=== PATIENT | female | born 2005 | race Caucasian/White ===

== ENCOUNTER 2023-06-21 11:28 | Outpatient (OUT) | payer MEDICAID, SELFPAY ==
[2023-06-21 12:05] LABS: Basophils Percent Auto 0.9 % (0.2-2.0); Eosinophils Absolute Auto 0.1 10^3/uL (0.0-0.7); Eosinophils Percent Auto 2.4 % (0.9-7.0); Hematocrit 41.2 % (36.0-48.0); Hemoglobin 13.6 g/dL (12.0-16.0); Lymphocytes Absolute Auto 1.3 10^3/uL (1.2-3.8); Lymphocytes Percent Auto 39.1 % (20.5-60.0); Mean Corpuscular Volume 90.7 fL (81.0-99.0); Mean Platelet Volume 9.9 fL (9.5-13.5); Monocytes Absolute Auto 0.4 10^3/uL (0.3-0.8); Monocytes Percent Auto 11.5 % (1.7-12.0); Neutrophils Absolute Auto 1.6 10^3/uL (1.4-6.5); Neutrophils Percent Auto 46.1 % (43.0-75.0); Platelet Count 191 10^3/uL (150-450); Red Blood Count 4.54 10^6/uL (4.20-5.40); Red Cell Distribution Width 12.5 % (11.0-15.0); White Blood Count 3.4 10^3/uL (4.0-11.0)
[2023-06-21 12:28] LABS: Alanine Aminotransferase 15 U/L (14-59); Aspartate Amino Transferase 13 U/L (15-37); Triglycerides 33 mg/dL (<=150)
== END 2023-06-21 11:29 | disposition home or self-care (01) ==
PROVIDERS: PCP Nurse Practitioner Family
DX: L70.0 Acne vulgaris (principal); Z79.899 Other long term (current) drug therapy
CPT/HCPCS: 36415; 84450; 84460; 84478; 85025

== ENCOUNTER 2023-07-17 12:01 | Emergency (ER) | payer MEDICAID, SELFPAY ==
[2023-07-17 12:10] VITALS: BP 116/88; PULSE 72; RESP 20; TEMP 36.5; O2SAT 100; BMI 26.6
[2023-07-17 12:57] LABS: Bilirubin Urine NEGATIVE (NEGATIVE); Blood Urine TRACE-I (NEGATIVE); Clarity Urine CLEAR (CLEAR); Color Urine LT. YELLOW (YELLOW); Glucose Urine UA NEGATIVE (NEGATIVE); HCG Qualitative Urine* NEGATIVE (NEGATIVE); Ketones Urine NEGATIVE (NEGATIVE); Leukocyte Esterase Urine TRACE (NEGATIVE); Nitrite Urine NEGATIVE (NEGATIVE); Protein Urine NEGATIVE (NEG/TRACE); Specific Gravity Urine 1.015 (1.005-1.025); Urobilinogen Urine 0.2 EU/dL (0.2-1.0)
[2023-07-17 12:58] LABS: Urine Microscopic Indicated YES
[2023-07-17 13:08] LABS: Bacteria Urine TRACE #/HPF (NONE SEEN); Cast Seen? NONE SEEN #/LPF (NONE SEEN); Crystals Seen? None Seen #/HPF (None Seen); Mucus Urine NONE SEEN (NONE SEEN); RBC Urine 0-2 #/HPF (0-2); Squamous Epithelial Cell Urine RARE #/LPF (NONE/RARE); Urine Culture Indicated NO; WBC Urine 0-2 #/HPF (NONE SEEN)
--- NOTE | 2023-07-17 13:29 | XR_ITS ---
[place] [id number] Patient Name: MARYCARMEN PATEL MRN: [id number] date: 2005 Sex: F Assigned Patient Location: ER Current Patient Location: ER Accession/Order Number: [id number] Exam Date: 07/17/2023 13:52 Report Date: 07/17/2023 14:11 At the request of: HUY ODEN Procedure: XR abdomen min 2V EXAMINATION: XR abdomen min 2V, [id number] HISTORY: Low abdominal pain, diarrhea COMPARISON: CT abdomen/pelvis 03/25/2021 FINDINGS: Nonobstructive bowel gas pattern. No pneumoperitoneum, pneumatosis, or portal venous gas demonstrated. No abnormal soft tissue calcifications. Stool burden is average. XR/XR abdomen min 2V IMPRESSION: No acute intra-abdominal abnormality demonstrated. Electronically authenticated by: ANGELICA YANCEY Date: 07/17/2023 14:11
--- NOTE | 2023-07-17 13:31 | ED_ITS ---
HPI - Abdominal Pain General Chief Complaint: Abdominal Pain Stated Complaint: ABDOMINAL PAIN Time Seen by Provider: 07/17/23 13:22 Source: patient Mode of arrival: walk-in Limitations: no limitations History of Present Illness HPI narrative: patient is a 18-year-old female presents to the emergency department for the evaluation of suprapubic pain for the last three days associated with occasional vomiting. She states she has also had diarrhea since the pain began. She has not had any fevers, chills, dysuria or hematuria. She states the pain feels like menstrual cramps. She has not had any abnormal vaginal bleeding. She has had some vaginal discharge that she states seems typical for her. She states her primary concern is that her significant other has been having intercourse with other partners that she is concern for STD exposure. she is not concerned for . she has no flank or back pain. No medications taken prior to arrival. Related Data Home Medications Medication Instructions Recorded Confirmed isotretinoin 40 mg capsule 40 mg PO DAILY 07/17/23 07/17/23 (Accutane) Previous Rx's Medication Instructions Recorded hyoscyamine sulfate 0.125 mg 0.125 mg PO Q6H PRN abdominal pain 07/17/23 tablet (Levsin) #12 tabs ketorolac 10 mg tablet 10 mg PO TID PRN pain #10 tabs 07/17/23 ondansetron 4 mg disintegrating 4 mg PO Q6H PRN nausea and 07/17/23 tablet vomiting #12 tabs Allergies Allergy/AdvReac Type Severity Reaction Status Date / Time No Known Drug Allergies Allergy Verified 07/17/23 12:09 Review of Systems ROS Constitutional Denies: fever or chills Ears, nose, mouth, and throat Denies: throat pain Cardiovascular Denies: chest pain Respiratory Denies: shortness of breath or cough Gastrointestinal Reports: abdominal pain, nausea, vomiting and diarrhea Genitourinary Denies: painful urination Musculoskeletal Denies: back pain Integumentary/Breast Denies: rash Neurological Denies: headache Psychiatric Denies: anxiety Endocrine Denies: excessive urination PFSH PFSH Social History Smoking status: Never smoker Exam Narrative Exam Narrative: Gen.: Awake, alert, in no distress Head: Normocephalic, atraumatic ENT: Moist mucous membranes Respiratory: No respiratory distress Gastrointestinal: Abdomen is soft, nondistended and mildly tender to palpation in the suprapubic abdomen with no guarding or rebound. No pain out of proportion on exam. No right lower quadrant or McBurney's point tenderness. No flank or CVA tenderness. Extremities: Moves extremities equally Psych: Normal mood and affect Neuro: No focal neuro deficit Skin: Warm, dry, intact Constitutional Vital Signs, click to edit/add: Last Vital Signs Temp 97.7 F 07/17/23 12:10 Pulse 72 07/17/23 12:10 Resp 20 07/17/23 12:10 BP 116/88 07/17/23 12:10 Pulse Ox 100 07/17/23 12:10 O2 Del Method Room Air 07/17/23 12:10 Course Vital Signs Vital signs: Vital Signs Temperature 97.7 F 07/17/23 12:10 Pulse Rate 72 07/17/23 12:10 Respiratory Rate 20 07/17/23 12:10 Blood Pressure 116/88 07/17/23 12:10 Pulse Oximetry 100 07/17/23 12:10 Oxygen Delivery Method Room Air 07/17/23 12:10 Temperature 97.7 F 07/17/23 12:10 Pulse Rate 72 07/17/23 12:10 Respiratory Rate 20 07/17/23 12:10 Blood Pressure 116/88 07/17/23 12:10 Pulse Oximetry 100 07/17/23 12:10 Oxygen Delivery Method Room Air 07/17/23 12:10 MDM - Abdominal Pain MDM Narrative Medical decision making narrative: pelvic exam was performed at bedside with Kenna Rendon RN at bedside throughout the duration of the exam. Patient has no external lesions or active drainage or bleeding. Speculum exam shows a mild amount of white discharge, no cervical motion tenderness. Pelvic swabs were obtained. These are pending, patient would like to be empirically treated with Rocephin, azithromycin and Flagyl. She was treated in the Emergency Room with Toradol and Zofran. Abdomen is soft and benign, lab studies and abdominal x-rays are also unremarkable. She has no pain out of proportion on exam or McBurney's point tenderness concerning for appendicitis. She will be treated with Toradol, Levsin, Zofran for home. Follow- up with adult basic education instructor and return to the Emergency Room if symptoms change or worsen. Patient was instructed not to have intercourse until her pelvic swabs result. Medical Records Attestation: I reviewed the patient's medical records. Lab Data Attestation: I reviewed the patient's lab results. Labs: Lab Results 07/17/23 07/17/23 Range/Units 12:40 13:45 WBC 4.3 (4.0-11.0) 10^3/uL RBC 4.38 (4.20-5.40) 10^6/uL Hgb 13.4 (12.0-16.0) g/dL Hct 40.7 (36.0-48.0) % MCV 92.9 (81.0-99.0) fL MCH 30.6 (26.7-34.0) pg MCHC 32.9 (29.9-35.2) g/dL RDW 12.8 (11.0-15.0) % Plt Count 193 (150-450) 10^3/uL MPV 9.7 (9.5-13.5) fL Neut % (Auto) 62.7 (43.0-75.0) % Lymph % (Auto) 26.6 (20.5-60.0) % [place] % (Auto) 9.6 (1.7-12.0) % Eos % (Auto) 0.9 (0.9-7.0) % Baso % (Auto) 0.2 (0.2-2.0) % Neut # (Auto) 2.7 (1.4-6.5) 10^3/uL Lymph # (Auto) 1.1 L (1.2-3.8) 10^3/uL [place] # (Auto) 0.4 (0.3-0.8) 10^3/uL Eos # (Auto) 0.0 (0.0-0.7) 10^3/uL Baso # (Auto) 0.0 (0.0-0.1) 10^3/uL Abs Immat Gran (auto) 0.00 (0.00-0.03) 10^3/uL Imm/Tot Granulo (auto) 0.0 (0.0-0.5) % Sodium 140 (136-145) mmol/L Potassium 3.6 (3.5-5.1) mmol/L Chloride 104 (98-107) mmol/L Carbon Dioxide 28.5 (21.0-32.0) mmol/L Anion Gap 11.1 BUN 4.0 L (7.0-18.0) mg/dL Creatinine 0.78 (0.55-1.02) mg/dL Est GFR ( Amer) >60 (>=60) Est GFR (Non-Af Amer) >60 (>=60) BUN/Creatinine Ratio 5.1 Glucose 89 (74-106) mg/dL Calcium 8.7 (8.5-10.1) mg/dL Total Bilirubin 0.4 (0.2-1.0) mg/dL AST 11 L (15-37) U/L ALT 14 (14-59) U/L Alkaline Phosphatase 80 (46-116) U/L Total Protein 7.7 (6.4-8.2) g/dL Albumin 3.7 (3.4-5.0) g/dL Globulin 4.0 g/dL Albumin/Globulin Ratio 0.9 Urine Color Lt. yellow (YELLOW) Urine Clarity Clear (CLEAR) Urine pH 7.0 (5.0-9.0) Ur Specific [place] 1.015 (1.005-1.025) Urine Protein Negative (NEG/TRACE) mg/dL Urine Glucose (UA) Negative (NEGATIVE) mg/dL Urine Ketones Negative (NEGATIVE) mg/dL Urine Occult Blood Trace-i (NEGATIVE) Urine Nitrite Negative (NEGATIVE) Urine Bilirubin Negative (NEGATIVE) Urine Urobilinogen 0.2 (0.2-1.0) EU/dL Ur Leukocyte Esterase Trace A (NEGATIVE) Urine RBC 0-2 (0-2) #/HPF Urine WBC 0-2 A (NONE SEEN) #/HPF Ur Squamous Epith Cells Rare (NONE/RARE) #/LPF Urine Crystals None seen (None Seen) #/HPF Urine Bacteria Trace A (NONE SEEN) #/HPF Urine Casts None seen (NONE SEEN) #/LPF Urine Mucus None seen (NONE SEEN) Ur Culture Indicated? No Urine HCG, Qual Negative (NEGATIVE) Imaging Data Abdominal x-ray: Attestation: I have reviewed the pertinent imaging results. Discharge Plan Discharge Chief Complaint: Abdominal Pain Clinical Impression: Pelvic pain Patient Disposition: Home, Self-Care Time of Disposition Decision: 14:23 Condition: Good Prescriptions / Home Meds: New ketorolac 10 mg tablet 10 mg PO TID PRN (Reason: pain) Qty: 10 0RF hyoscyamine sulfate [Levsin] 0.125 mg tablet 0.125 mg PO Q6H PRN (Reason: abdominal pain) Qty: 12 0RF ondansetron 4 mg tablet,disintegrating 4 mg PO Q6H PRN (Reason: nausea and vomiting) Qty: 12 0RF No Action isotretinoin [Accutane] 40 mg capsule 40 mg PO DAILY Rx Instructions: must administer with a meal/food Instructions: Pelvic Pain in Women (ED) Stand Alone Forms: Portal Instructions Referrals: FRANKLIN BUTLER [Primary Care Provider] - 1 week
[2023-07-17] MEDS: ONDANSETRON 4 MG RAPDIS TABLET SL (13:44)
[2023-07-17] MEDS: KETOROLAC TROMETHAMINE 10 MG TABLET PO (13:44)
[2023-07-17 13:54] LABS: Basophils Percent Auto 0.2 % (0.2-2.0); Eosinophils Percent Auto 0.9 % (0.9-7.0); Hematocrit 40.7 % (36.0-48.0); Hemoglobin 13.4 g/dL (12.0-16.0); Lymphocytes Absolute Auto 1.1 10^3/uL (1.2-3.8); Lymphocytes Percent Auto 26.6 % (20.5-60.0); Mean Corpuscular HGB Conc 32.9 g/dL (29.9-35.2); Mean Corpuscular Hemoglobin 30.6 pg (26.7-34.0); Mean Corpuscular Volume 92.9 fL (81.0-99.0); Mean Platelet Volume 9.7 fL (9.5-13.5); Monocytes Absolute Auto 0.4 10^3/uL (0.3-0.8); Monocytes Percent Auto 9.6 % (1.7-12.0); Neutrophils Absolute Auto 2.7 10^3/uL (1.4-6.5); Neutrophils Percent Auto 62.7 % (43.0-75.0); Platelet Count 193 10^3/uL (150-450); Red Blood Count 4.38 10^6/uL (4.20-5.40); Red Cell Distribution Width 12.8 % (11.0-15.0); White Blood Count 4.3 10^3/uL (4.0-11.0)
[2023-07-17 14:14] LABS: Alanine Aminotransferase 14 U/L (14-59); Albumin Globulin Ratio 0.9; Albumin Level 3.7 g/dL (3.4-5.0); Alkaline Phosphatase 80 U/L (46-116); Anion Gap 11.1; Aspartate Amino Transferase 11 U/L (15-37); BUN Creatinine Ratio 5.1; Bilirubin Total 0.4 mg/dL (0.2-1.0); Calcium 8.7 mg/dL (8.5-10.1); Carbon Dioxide 28.5 mmol/L (21.0-32.0); Chloride 104 mmol/L (98-107); Estimated GFR (African America >60 (>=60); Estimated GFR (Non-African Ame >60 (>=60); Glucose 89 mg/dL (74-106); Potassium 3.6 mmol/L (3.5-5.1); Sodium 140 mmol/L (136-145); Total Protein 7.7 g/dL (6.4-8.2)
[2023-07-19 09:11] LABS: Neisseria gonorrhoeae, NAA Negative (Negative)
== END 2023-07-17 14:35 | disposition home or self-care (01) ==
PROVIDERS: Physician Assistant; Emergency Provider Emergency Medicine Emergency Medical Services; PCP Nurse Practitioner Family
DX: R10.2 Pelvic and perineal pain (principal); Z79.899 Other long term (current) drug therapy
CPT/HCPCS: 36415; 74019; 80053; 81001; 84703; 85025; 87210; 87491; 87591; 99284

== ENCOUNTER 2023-09-07 11:28 | Emergency (ER) | payer MEDICAID, SELFPAY ==
[2023-09-07 11:37] VITALS: BP 113/83; PULSE 77; RESP 18; TEMP 36.9; O2SAT 100; BMI 25.8
--- NOTE | 2023-09-07 11:44 | PC.NURSE ---
PT STATES POSSIBLE EXPOSURE TO STD AFTER UNPROTECTED SEX 1.5 WEEKS AGO. PT STATES HAS DEVELOPED ITCHINESS, WHITE DISCHARGE AND FOUL ODOR SINCE UNPROTECTED SEX
--- OUTSIDE RECORDS SUMMARY | 2023-09-07 11:56 | XMS_ITS | CCD ---
Author Name Unknown Address [phone] [facility] [address] [place] [address] Organization [facility] Care Team Providers Care Hearing Officer Name Role Phone Verenice Moreira Unavailable [facility], DR LUJAN Consulting Unavailable [facility], DR LUJAN Attending Unavailable [facility], DR LUJAN Admitting Unavailable VERENICE BUTLER Primary Care Unavailable VERENICE BUTLER Consulting Unavailable VERENICE BUTLER Attending Unavailable VERENICE BUTLER Admitting Unavailable VERENICE BUTLER Primary Care Unavailable VERENICE BUTLER Consulting Unavailable VERENICE BUTLER Attending Unavailable [facility], DR LUJAN Primary Care Unavailable VERENICE BUTLER Admitting Unavailable Aurea Walsh MD Primary Care Provider [phone] MARLEY SALEEM Referring Unavailable AUREA WALSH Primary Care Unavailable Medications Current Medications Medication Drug Class(es) Dates Sig (Normalized) Sig (Original) ISOtretinoin 40 mg oral capsule (1 source) Retinoid Start: 01-01-2023 CLARAVIS 40 MG chemo capsule Verapamil (1 source) Calcium Channel Travis Verapamil HCl Active Completed/Discontinued Medications Medication Drug Class(es) Dates Sig (Normalized) Sig (Original) dextromethorphan hydrobromide 1.5 mg/ml / pyrilamine maleate 1.5 mg/ml oral solution (1 source) Uncompetitive M-mannmb-S-aspartate Receptor Antagonist, Sigma-1 Agonist Start: 04-01-2021 [place] DM 7.5-7.5 MG/5ML 10 ml Orally every 6-8 hours as needed for 8 days Mar, Not-Taking fluticasone propionate 0.05 mg/actuat metered dose nasal spray (1 source) Corticosteroid Start: 04-01-2021 take 1 spray(s) nasal route once daily Fluticasone Propionate 50 MCG/ACT 1 spray in each nostril Nasally Once a day for 30 day(s) Mar, Not-Taking Sertraline (1 source) Serotonin Reuptake Inhibitor Zoloft Not-Taking Problems Active Problems Problem Classification Problem Date Documented Date Episodic/Chronic Immunizations and screening for infectious disease (2 sources) At risk of sexually transmitted infection ; Translations: [Contact with and (suspected) exposure to infections with a predominantly sexual mode of transmission] Onset: 01-03-2023 Episodic Other skin disorders (4 sources) Acne vulgaris; Translations: [ACNE VULGARIS] Onset: 12-26-2022 Episodic Other skin disorders (1 source) Other specified disorders of the skin and subcutaneous tissue; Translations: [OTH SPEC D/O SKIN AND SUBQ TISSUE] Onset: 12-31-2022 Episodic Residual codes; unclassified (4 sources) Transient alteration of awareness; Translations: [TRANSIENT ALTERATION OF AWARENESS] Onset: 11-06-2022 Episodic Unclassified (3 sources) CONTACT W/AND (SUSP) EXPOS COVID-19; Translations: [CONTACT W/AND (SUSP) EXPOS COVID-19] Onset: 08-12-2022 Past or Other Problems Problem Classification Problem Date Documented Da te Episodic/Chronic Fever of unknown origin (1 source) Fever, unspecified; Translations: [FEVER UNSPECIFIED] Onset: 08-12-2022 Episodic Lymphadenitis (1 source) Generalized enlarged lymph nodes; Translations: [GENERALIZED ENLARGED LYMPH NODES] Onset: 08-12-2022 Episodic Malaise and fatigue (1 source) Other fatigue; Translations: [OTHER FATIGUE] Onset: 08-12-2022 Episodic Other connective tissue disease (1 source) Pain in right hand; Translations: [Hand pain, right M79.641] Onset: 06-24-2021 Resolved: 06-24-2021 Episodic Superficial injury; contusion (1 source) Contusion of right middle finger without damage to nail, initial encounter; Translations: [Contusion of right middle finger without damage to nail, initial encounter S60.031A] Onset: 06-24-2021 Resolved: 06-24-2021 Episodic Unclassified (1 source) CONTACT W/AND (SUSP) EXPOS COVID-19; Translations: [CONTACT W/AND (SUSP) EXPOS COVID-19] Onset: 08-09-2022 Results Test Name Value Interpretation Reference Range Facility CBC AUTO DIFFon 12-26-2022 BASO # 0.0 103/ul Normal 0.0-0.1 [facility] Comment on above: Performed By: #### C BC #### [facility] [address] [place] [address] Dr. Lyubov Guzman Basophils/100 WBC (Bld) 0.5 % Normal 0.2-2.0 [facility] Comment on above: Performed By: #### C BC #### [facility] [address] [place] [address] Dr. Lyubov Guzman EO # 0.0 103/ul Normal 0.0-0.7 [facility] Comment on above: Performed By: #### C BC #### [facility] [address] [place] [address] Dr. Lyubov Guzman Eosinophils/100 WBC (Bld) 0.9 % Normal 0.9-7.0 [facility] Comment on above: Performed By: #### C BC #### [facility] [address] [place] [address] Dr. Lyubov Guzman Erythrocyte distribution width (RBC) [Ratio] 12.9 % Normal 11.0-15.0 [facility] Comment on above: Performed By: #### C BC #### [facility] [address] [place] [address] Dr. Lyubov Guzman Hematocrit (Bld) [Volume fraction] 42.1 % Normal 36.0-48.0 [facility] Comment on above: Performed By: #### C BC #### [facility] [address] [place] [address] Dr. Lyubov Guzman Hemoglobin (Bld) [Mass/Vol] 13.4 g/dL Normal 12.0-16.0 [facility] Comment on above: Performed By: #### C BC #### [facility] [address] [place] [address] Dr. Lyubov Guzman IG # 0.00 10e3/ul Normal 0.00-0.03 [facility] Comment on above: Performed By: #### C BC #### [facility] [address] [place] [address] Dr. Lyubov Guzman IG % 0.0 % Normal 0.0-0.5 [facility] Comment on above: Performed By: #### C BC #### [facility] [address] [place] [address] Dr. Lyubov Guzman LYMPH # 1.3 103/ul Normal 1.2-3.8 [facility] Comment on above: Performed By: #### C BC #### [facility] [address] [place] [address] Dr. Lyubov Guzman Lymphocytes/100 WBC (Bld) 31.5 % Normal 20.5-60.0 [facility] Comment on above: Performed By: #### C BC #### [facility] [address] [place] [address] Dr. Lyubov Guzman MANUAL DIFF REQ NO Normal [facility] Comment on above: Performed By: #### C BC #### [facility] [address] [place] [address] Dr. Lyubov Guzman MCH (RBC) [Entitic mass] 27.9 pg Normal 26.7-34.0 [facility] Comment on above: Performed By: #### C BC #### [facility] [address] [place] [address] Dr. Lyubov Guzman MCHC (RBC) [Mass/Vol] 31.8 g/dL Normal 29.9-35.2 [facility] Comment on above: Performed By: #### C BC #### [facility] [address] [place] [address] Dr. Lyubov Guzman MCV (RBC) [Entitic vol] 87.5 fL Normal 81.0-99.0 [facility] Comment on above: Performed By: #### C BC #### [facility] [address] [place] [address] Dr. Lyubov Guzman MONO # 0.4 103/ul Normal 0.3-0.8 [facility] Comment on above: Performed By: #### C BC #### [facility] [address] [place] [address] Dr. Lyubov Guzman Monocytes/100 WBC (Bld) 10.1 % Normal 1.7-12.0 [facility] Comment on above: Performed By: #### C BC #### [facility] [address] [place] [address] Dr. Lyubov Guzman NEUT # 2.4 103/ul Normal 1.4-6.5 [facility] Comment on above: Performed By: #### C BC #### [facility] [address] [place] [address] Dr. Lyubov Guzman Neutrophils/100 WBC (Bld) 57.0 % Normal 43.0-75.0 [facility] Comment on above: Performed By: #### C BC #### [facility] [address] [place] [address] Dr. Lyubov Guzman Platelet mean volume (Bld) [Entitic vol] 9.8 fL Normal 9.5-13.5 [facility] Comment on above: Performed By: #### C BC #### [facility] [address] [place] [address] Dr. Lyubov Guzman PLT 182 103/ul Normal 150-450 [facility] Comment on above: Performed By: #### C BC #### [facility] [address] [place] [address] Dr. Lyubov Guzman RBC 4.81 106/ul Normal 4.20-5.40 [facility] Comment on above: Performed By: #### C BC #### [facility] [address] [place] [address] Dr. Lyubov Guzman WBC 4.3 103/ul Normal 4.0-11.0 [facility] Comment on above: Performed By: #### C BC #### [facility] [address] [place] [address] Dr. Lyubov Guzman SGOTon 12-26-2022 AST [Catalytic activity/Vol] 14 U/L Critically low 15-37 [facility] Comment on above: Performed By: #### A LT, TRIG, AST #### [facility] [address] [place] [address] Dr. Lyubov Guzman SGPTon 12-26-2022 ALT [Catalytic activity/Vol] 18 U/L Normal 14-59 [facility] Comment on above: Performed By: #### A LT, TRIG, AST #### [facility] [address] [address] [address] Lyubov Guzman TRIGLYCERIDEon 12-26-2022 Triglyceride [Mass/Vol] 28 mg/dL Critically low 53-208 [facility] Comment on above: Performed By: #### A LT, TRIG, AST #### [facility] [address] [address] [address] Lyubov Guzman ECHOCARDIO M/2D COMPLETEon 0 11-06-2022 ECHOCARDIO M/2D COMPLETE Patient Name Site Name MARYCARMEN MATHEW [facility] Account No Medical Record Number Age Sex Date Time [id number] F 11/06/2022 14:24 At the Request Of VERENICE BUTLER ECHOCARDIOGRAM REPORT PROCEDURE: CARDIO PULMONARY ECHOCARDIO M/2D COMP INDICATIONS: Transient alteration of awareness COMPARISON: None. DESCRIPTION: COMPLETE ECHOCARDIOGRAM Real-time transthoracic echocardiography with 2D, M-mode, spectral and color flow Doppler performed. QUALITY: Technical quality was good. LEFT VENTRICLE: Normal chamber size. Normal left ventricular wall thickness. Normal systolic function. LV EF: Normal left ventricular ejection fraction, (>55%). DIASTOLIC: Normal diastolic function. ATRIAL SEPTUM: Visually appears intact. LEFT ATRIUM: Normal chamber size. RIGHT ATRIUM: Normal chamber size. RIGHT VENTRICLE: Normal chamber size. Normal right ventricular systolic function. TRICUSPID VALVE: Normal mobility and thickness. No stenosis with no regurgitation. MITRAL VALVE: Normal mobility and thickness. No evidence of mitral valve stenosis. There is no mitral annular calcification. Trivial mitral regurgitation. AORTIC VALVE: Normal trileaflet appearance. No visible sclerosis. Normal leaflet mobility. No evidence of aortic valve stenosis. No aortic regurgitation. AORTIC ROOT: Normal diameter and appearance. PULMONIC VALVE: Normal thickness and mobility. No stenosis. No regurgitation. PERICARDIUM: No evidence of pericardial effusion. IVC: Collapses with inspirations. IVC is normal in size. PLEURA: CONCLUSION: 1. Normal ventricular function. LVEF is 60 to 65%. 2. No significant valvular dysfunction. 3. No pericardial effusion. Adult Echocardiography Procedure Report Left Ventricle LVEDD (3.7 - 5.6 cm): 3.86 cm LVESD (2.2 - 4.0 cm): 2.30 cm LVIVS thickness (0.6 - 1.2 cm): 0.73 cm LVPW thickness (0.5 - 1.0 cm): 0.86 cm e': 0.21 m/s E - e': 4.08 LVOT Max Gradient: 4.09 mm[Hg], 3.96 mm[Hg] Peak Velocity (LVOT): 1.01 m/s, 0.99 m/s Mean Velocity (LVOT): 0.71 m/s, 0.73 m/s LVOT Diameter 2.00 cm Left Ventricular Ejection Fraction: 60-65% Left Atrium LA Volume Index (2D A2C): 42.19 ml, 42.19 ml Left Atrium Systolic Dimension: 3.49 cm Mitral Valve MV E to A Ratio: 1.50 Mitral Valve A-Wave Peak Velocity: 0.57 m/s Mitral Valve E-Wave Peak Velocity: 0.85 m/s Right Ventricle Aorta AO Root Diam: 3.09 cm Aortic Valve AoV Area (Peak Saleem): 2.53 cm2, 2.55 cm2 Peak Velocity(Antegrade Flow): 1.25 m/s Peak Gradient(Antegrade Flow): 6.20 mm[Hg] Tricuspid Valve Peak Velocity: 0.70 m/s Pulmonic Valve Peak Velocity: 1.01 m/s, 1.04 m/s Peak Gradient: 4.10 mm[Hg], 4.32 mm[Hg] Right Atrium Right Atrium Systolic Pressure: 60.48 ml, 60.48 ml Dictated by: Willie Ennis M.D. on 11/07/2022 at 18:59 Approved by: Willie Ennis M.D. on 11/07/2022 at 19:00 Normal [facility] Covid-19 PCR ([facility]on 07-13 SARS-CoV-2 (COVID-19) RNA KIMMY+probe Ql (Unsp spec) Not detected Normal NOT DETECTED [facility] Comment on above: Result Comment: When diagnostic testing is negative, the possibility of a false negative should be considered in the context of a patient's recent exposures and the presence of clinical signs and symptoms consistent with SARS-CoV-2. This test is not yet approved or cleared by the [place] FDA. When there are no FDA-approved or cleared tests available, and other criteria are met, FDA can make tests available under an emergency access mechanism called an Emergency Use Authorization (EUA). The EUA for this test is supported by the Furnace Operator of Health and Human Service's declaration that circumstances exist to justify the emergency use of in vitro diagnostics for the detection and/or diagnosis of the virus that causes COVID-19. This EUA will remain in effect for the duration of the COVID-19 declaration justifying emergency of IVDs, unless it is terminated or revoked by the FDA (after which the test may no longer be used). Performed By: #### C VDTBH #### [facility] [address] [place] [address] Dr. Lyubov Guzman GROUP A STREP CULTUREon 07-13 S. pyogenes Ag Ql (Unsp spec) Culture Observations: NEGATIVE FOR GROUP A STREPTOCOCCUS. Normal [facility] Comment on above: Performed By: #### G RASTCX #### [facility] [address] [place] [address] Dr. Lyubov Guzman INFLUENZA A AND B AGon 08-09 INFLUANEGH SEE BELOW Normal [facility] Comment on above: Result Comment: Nega tive for Flu A protein angiten. Infection due to Flu A cannot be ruled out. Flu A angiten in the sample may be below the detection limit of the test. Performed By: #### I NFLUAB #### [facility] [address] [place] [address] Dr. Lyubov Guzman INFLUBNEGH SEE BELOW Normal [facility] Comment on above: Result Comment: Nega tive for Flu B protein antigen. Infection due to Flu B cannot be ruled out. Flu B antigen in the sample may be below the detection limit of the test. Performed By: #### I NFLUAB #### [facility] [address] [place] [address] Dr. Lyubov Guzmna INFLUENZA A AG Negative Normal NEGATIVE SEE COMMENT [facility] Comment on above: Performed By: #### I NFLUAB #### [facility] [address] [address] [address] Lyubov Guzman INFLUENZA B AG Negative Normal NEGATIVE SEE COMMENT [facility] Comment on above: Performed By: #### I NFLUAB #### [facility] [address] [address] [address] Lyubov Guzman INTERNAL CONTROLS Within Normal Limits Normal Wi thin Normal Limits [facility] Comment on above: Performed By: #### I NFLUAB #### [facility] [address] [address] [address] Lyubov Guzman MONOon 08-09-2022 Monocytes (Bld) [#/Vol] Positive Abnormal NEGATIVE [facility] Comment on above: Performed By: #### M NORMA #### [facility] [address] [address] [address] Lyubov Guzman STREPT SCREENon 08-09-2022 STREP SCREEN A Negative Normal NEGATIVE [facility] Comment on above: Performed By: #### S SCRN #### [facility] [address] [address] [address] Lyubov Guzman XR hand RT min 3V*on 021 XR hand RT min 3V* [facility] [place] [address] [place] [address] XRay Report Signed Patient: Marycarmen Mathew MR#: [id number] : 2005 Acct:[id number] Age/Sex: 16 / F ADM Date: 06/24/21 Loc: XDUCLY Room: Type: [facility] Attending Dr: Verenice PRESSLEY Ordering Provider: HUAN Shrestha Date of Service: 06/24/21 XR/XR hand RT min 3V*: RIGHT HAND INJURY Copies to: HUAN Shrestha XR hand RT min 3V* 06/24/2021 5:59 PM SIGNS AND SYMPTOMS: RIGHT HAND INJURY PROTOCOL: Frontal, lateral, and oblique radiographs of the right hand COMPARISON: None FINDINGS: The bones are in anatomic alignment. The joint spaces are preserved. There is no fracture or dislocation. No significant soft tissue swelling. XR/XR hand RT min 3V* IMPRESSION: No acute bony injury. Impression dictated by: Piter Fox M.D.06/24/2021 6:04 PM Dictation Location: [address] [address] Transcribed By: [facility] 06/24/211803 Dictated By: Piter Fox II, MD 06/24/21 1800 Signed By: 06/24/211803 Normal [facility] XR hand RT min 3V* [facility] [employer] Other XR hand RT min 3V* [facility] [employer] Other XR hand RT min 3V* [address] [place] [address] [employer] Other XR hand RT min 3V* [place] [address] [employer] Other XR hand RT min 3V* XRay Report [employer] Other XR hand RT min 3V* Signed [employer] Other XR hand RT min 3V* Patient: Marycarmen Mathew MR#: [id number] [employer] Other XR hand RT min 3V* [id number] [employer] Other XR hand RT min 3V* : 2005 Acct:[id number] [employer] Other XR hand RT min 3V* Age/Sex: 16 / F ADM Date: 06/24/21 [employer] Other XR hand RT min 3V* Loc: XDUCLY Room: Type: [facility] [employer] Other XR hand RT min 3V* Attending Dr: Verenice PRESSLEY [employer] Other XR hand RT min 3V* Ordering Provider: HUAN Shrestha [employer] Other XR hand RT min 3V* Date of Service: 06/24/21 [employer] Other XR hand RT min 3V* XR/XR hand RT min 3V*: RIGHT HAND INJURY [employer] Other XR hand RT min 3V* Copies to: HUAN Shrestha [employer] Other XR hand RT min 3V* XR hand RT min 3V* 06/24/2021 5:59 PM [employer] Other XR hand RT min 3V* SIGNS AND SYMPTOMS: RIGHT HAND INJURY [employer] Other XR hand RT min 3V* PROTOCOL: Frontal, lateral, and oblique radiographs of the right hand [employer] Other XR hand RT min 3V* COMPARISON: None [employer] Other XR hand RT min 3V* FINDINGS: [employer] Other XR hand RT min 3V* The bones are in anatomic alignment. The joint spaces are preserved. There is no fracture or [employer] Other XR hand RT min 3V* dislocation. No significant soft tissue swelling. [employer] Other XR hand RT min 3V* XR/XR hand RT min 3V* [employer] Other XR hand RT min 3V* IMPRESSION: [employer] Other XR hand RT min 3V* No acute bony injury. [employer] Other XR hand RT min 3V* Impression dictated by: Piter Fox M.D.06/24/2021 6:04 PM [employer] Other XR hand RT min 3V* Dictation Location: [place] [address] [employer] Other XR hand RT min 3V* Transcribed By: ENRIQUETA 06/24/21 180 [employer] Other XR hand RT min 3V* Dictated By: Piter Fox II, MD 06/24/21 1800 [facility] [employer] Other XR hand RT min 3V* Signed By: [employer] Other XR hand RT min 3V* 06/24/21 1804 [facility] [employer] Other Coding Summary.on 03-23-2021 Coding Summary. [id number] Gh0bWw+PGhlYWQ+PE1FV NWkR75duCXuaU8EJ9dSG X0KDJXRNNIERN1OGP5pg FH3CNncZ2LpubXl AvlgnZOmPF98BYa7OXW5 rGbzZKcitN7aoHXmA7h7 YbOvGQ33yC00PTgzAINv DxE0GxFloomraHJy W8muTfOkaIJtExf+PHRh YmxlIHdpZHRoPScxMDAl HeBaeQjoRO0lGs9mMMKx LWNvbGxhcHNlOiBj f7liYHUaNVqhCV3ryWbe F9KhuUJ9EVYib0r3Yh18 dHI+MDKyBVP1fZxpSRrm e556UvNva6ogETJ9 uEDbMLgdBPB9B50fn8M1 NAVwYKMiWDN1kPM7qO1h eCzvyybbK8QpfVJvJdT4 ZTT8zDJqxR6meJva swdigL0tTdb+P32BNH8P PKLAUU8UBzx8I7ItXwgg dHI+QU12VZBmYT70xDHd oXQca2estIp3HoEn WGRkZFP1eLzjCXoor5Qs UCCzR07njFWvq1Y1IIJm cEywlYHhRmGupHZ6fO9w GEcqexyvx2aqiyji Opqkp7mmsz65rP41Y18f GQpaBNCsDQG8DJNaKWFh jSiksn1yiU3qWz0+IDxj h4xna3hfvMz7WxWv WXNfwoDiiVzrIOC4t0Xw Mk26C8SykDspg2BdPjo7 ox43oYGdi2E7iWI5HXrj DLQrcZ6iSMvsWqX1 XMDmDgYpoY33uYFjOXbr Os8geSwhfDpeNZ3eXJBo xczmFAEfkR4mVJBvyXFc tMtvQC8rXQIyjnzn z488YgRzDFC4FPNicIIv J3HbbB8mXiDiMUAaCXXp K9DfaRFeQXxyI638YVah YvI3XLGsdgJpY1Va EJCskGbaTkM6m9R9Jh0O s8AofruzRBO0AYloTNF6 KnO7ZqHiGrV0Z7CnGge9 HKYnxNmeSA0aD5Yq OJKlvbexpldcpSZ9VUHk QSKwsZ69iWMcLRomKm7j g0Q3k283GVFiFBHjpC43 Zh8flQnqBCFwtKAC gK3zfucyj4ryyflgCtWq PVXvSIs3RTv4XRMymEil BiBeNBG2BmI1GCM4uBEq xY6frEzdzcbfkG8d Oyc+Z27hpM3jYGU6FCB4 gsunVBBkrtNvTU82FW62 X6UkYbbunVHjkRV+PGRp aaTtjUyuUZ9dFcQv d2paa0MbLUxwK4OgQGWd WJsdNqr3YOZrGII3bGR1 bP9rSARyFDrzc0U8wZO2 T8HameDpzo9vx2ss DLQxIMlrO78zhHJow8U2 TMSncNR9SOTqqPaoOcXd iO28Oib+DNMbtPkgf9Hw Pddws0gft1uksVu2 IjMwJSIgdmFsaWduPSJ0 n5UjCt55L34zXFtmUMCw YXNoCDCtTMWhyIibfr0n kG4qYh9+PGNvbCB3 rEU6vJ4wYRCsJfP9YNux J396KtLqdNEoKxezq5cu r6ehlAr5RlNjSJLfhdYz nYoxAVX4s7IrZu67 H07cNTlgDVXqREQkZVEg XOUgfHbobn3mkE7gLi4+ FY6kv8bfxl79iL01dBC+ MCVbZKQ7mLakGNjg XMCnbT3nWCxvQmV4FOZy ThOzpI55rMMhPTusSv6b fZpooQtwZT1nCOVklojy v541SzGgb4ltTQDn dUFrUMclCGH9S31vd7T7 BSXqDKKoINW1pZC8iA1q bGlnbjogbGVmdDsgdmVy aEnmZBqxDSskH692 IHRvcDsnPlBhdGllbnQg XjXeDMm7S5RgEvz1LWEq aBcdET9flNTfTTceSq0p hObanPmeMW3aRAAn kgqik200TuBtj2azXOMz wRCyPHoqKFQ2M87fn9G2 WWZvPOAgHPD0aFG5vH1v bGlnbjogbGVmdDsg oeJsmJziRXmsTKasK632 IHRvcDsnPkJpcnRoIERh wXT6OZ72EH62iZBkt5L8 qWM3J5VrXRVasttx jpwbyES4GVTvOHBzpY79 Nd5dsKyjVf0uJIYsIWO0 LRNazHLeO7ErcT9aSwBi WERcFWSkN0XpiJSq LBlpR645NIcwMsY0PAZi kqReC2BlUOQucLwtNtH3 a5Y0Lx2LK7I8UG00HX31 jLCil9C8yLB5O4Ih LXFvuoadkrjyaLE0XDKq YJElfQ69Zh8anSaoDy6b BMIoNJJ2MUUxeSCjF5Wa yN7cAiGrVQPkQFBq H3DpxTWvXHncV939QWua ElW3RKHbdbGlO6KjIOZw mMdaCaQ2j5H1Cm7DCTk1 VD63CT72uLOzs1H4 nOW2Q3VqCFCbimxeieaq xVQ1XJHdPERikV29Fo9z yLzhGr4xWYDwITM1UNUi dNAqS3DudN0gKlZx CZWlIFKoC6EjbEZoVRmg N933JWziQmF9BTDildAt X7UbLBUatFmaEfQ2w3E5 Lx1AFEUtKL23YHZ0 yOB3EO17TA60S4QuPmvk dGFibGU+PHRhYmxlIHdp ZHRoPScxMDAlJyBzdHls IB8wLm1lKHFnYPNu oGrjqVOoXeMmd0aaNOQe ZDaxYC2koJsnP0NhxRL8 PKRkd6k3Bt06O57jU2Op dXA+LKFhiTH2nES4 xU0wJzAyXrY8ZSxwA161 QwMpyCVmHmynd5hdf9ra fDo5EmD2QWRsvxUehSbo PXY7c2DdFj80F58n IHdpZHRoPSIxNSUiIHZh nKudvb7qfN8lPn0+PGNv lPS2fOR6oZ9xDhSiBzT3 PKbsR419PzBeoZSb Splqh4rsw2vguTe2IyOf SEDfblMqlNocOAA9u2Jd Yv70L2RszNlqj3SlMqn9 xg96kBVka8S8kWU0 N1AuJUFgywyvvULseKyd BE4gLQWxzjwvLTEyfH1w PBNnC9d8BwEqVfC1GBbx P9LutcD1LHXrxPRt GPsgKQH8D29yd2U0JHVz MKZiBOZ9hAJ2aY9nqSbh bjogbGVmdDsgdmVydGlj AVhdTWubM348NKAd yArvLVJutJ0wWSDdqYYv fRpxFF9yPVBbpnneWsiI BKcXD7EWNMemUNGAQOUT SOVICK03MU17hHFz y2B2rCB6M4WwNIXnpeam bvkvdBL7KXRuDDIxfL79 sYFcQRzxBa4bl9R2h583 BUIeCQWklN89Vu2e eYxyPRRlgNNAeK9xrrsv x8ofztfdHeFrRTGxZLg3 MOu2BFYypRruZoBvIKY3 HlM3ISS4wHYupZ5s wHegmaeizQ8rNnf+MDcv MDEvMjAwMzwvdGQ+PHRk DDG4mJsdEFkoJNCwdF8m YVEqX6k4EfEwPfG3 CKopN1DzHDSgdulvPi26 pU7tUjKcYkB9TUveS7Jg slD1GMEqgINiWOzwHEQ9 T21ex6W6FQZqPXJt MGZ7nLV6iL9kjBtsradc bGVmdDsgdmVydGljYWwt LNtvI281ABSlqHojOzZ8 CEalOLOgGU77KL74 yISed2M1gQO6K9BaEYZs zwpidrifuIS5EWSiGWOv yX61wTBlJZigKp1rk8Q2 v885IULsOLIfaH34 Sm0tmRbxDVOgrCIPvT0l acgpm8tovcoqNgLeYMMr QBs4YJp1PWYygZujSgIe YYT8LhA7BPP0eITy gI2csEwybkxxxD3fTcb+ NxZrJAbeRL50XY94zYYa s5J4wVQ7T1AfZBZrtmeo pckzrDC1RUIqNLLd bE48uILuTUytQz2ch2E7 b266LUTeGSRlyY14Tf8v eKkcVQAqwNOSmD1ayokf o0smvbdwBlDoLYVu KWn3MWk9EDOgpHuiOhGa QCA4QxS5VLU1wOTheY2z pAwfsyrpxH4hPzj+TGFi SLCym2Wwm9UqMO48 AP20Q4CtCpahaHQcsSE+ PHRhYmxlIHdpZHRoPScx KXUcNoShqCxoKF1dGu8j ZGVyLWNvbGxhcHNl RvTvi7kwETCbNHfcYB4j yVdbW0ArgJF6BOKow3w0 Ie03Q18dV5UidBY+PGNv pQP3lRY7aV7vYfUe ZaZ6HVgdI275OfHndOEh Alokp7iqj9qerDh9ZmYi BKAaulQtmVzjDYJ2g0Dl Aj75A53hEYfyQDFj EQNuCTXbQSDkoPwjmf4b eT1eNe1+XHMaxXB4fFX2 cT5mAxRqJuR7IXmzC411 FcWhtTTyTsxkX24v P4UmeHA+PQBhYdl3YGZz ySexPS6tjMNiCTveOh5t KFA4BbOsHjIbMYguD8Ue ZGRpbmctcmlnaHQ6 JHZgLRLibQ39Fk0rdQld Hy8nWPGsULA5MPBjzMNh D2KskE1iIqCgBCKjFNAa B6NcrYOxWFtoM272 TEvbTnZ7FRBqajBlK5Ls CKOncXbkNcK5h1M6Rt9G zEiwsFSfBJ4kSeLyFHz2 F6NqIuh7WSFhgSsy CD9xrPZtPHxtUx6qlRja tEcoZR7oGPCyhhqsz837 JpTzm7maHWDgeLMhXKmm AKX6V67zx0R1OZUf YOCcFJS6zWJ7sF0qlCsd bjogbGVmdDsgdmVydGlj QUwvKKxuP250GHCdgYlp JaFXXay1I3QuYkc4 UWUfeAoyNF5klMMfATis Gz4wvBihaSnpPY3gIBOt awvxa535ZuAsv0btIIXx vUGwPFomUBC6G61j a2F5PBJuCSIvEXY0jWN7 sZ9igMxqhehjnDSjcYgc dyGkxOnxGAtoZSrsG257 YFXsyQuuWm8HCwb9 B9ZjZyi8RYLszIboRQ4u mXRwCKmhPc2omAjirXsf ND6pNKAcvsohb663SrMh f8idJDOfqDPhYCzd FWW4O71ia1T4ABRzJLLx EPH9fDT4zH4kaAfkfjhm bGVmdDsgdmVydGljYWwt YXsdN241FVDcqZjh PlBheWVyOjwvdGQ+PC90 kl28S6SiOjafPjr9FQSf FNH4dOB6gN9lHWErJWox r3R5mBE6Y8QhdvSt ci1j (more content not included)... Normal [facility] Physician Orderon 03-22-2021 Physician Order [id number] Normal [facility] CSF Cell Counton 11-19-2020 Clarity (CSF) CLEAR Normal [facility] Comment on above: Performed By: #### 2 [id number] #### [facility] [address] [place] [address] Color (CSF) Colorless Normal [facility] Comment on above: Performed By: #### 2 [id number] #### [facility] [address] [place] [address] RBC Auto (CSF) [#/Vol] 1 High <=0 [facility] Comment on above: Performed By: #### 2 [id number] #### [facility] [address] [place] [address] Tube Num CSF 3 Invalid Interpretation Code [facility] Comment on above: Performed By: #### 2 [id number] #### [facility] [address] [place] [address] WBC CSF 2 cells/mcL Normal 0-10 [facility] Comment on above: Performed By: #### 2 [id number] #### [facility] [address] [place] [address] Clarity (CSF) CLEAR Normal [facility] Comment on above: Performed By: #### 2 [id number], [id number] #### [facility] [address] [place] [address] Color (CSF) Colorless Normal [facility] Comment on above: Performed By: #### 2 [id number], [id number] #### [facility] [address] [place] [address] RBC Auto (CSF) [#/Vol] 3 High <=0 [facility] Comment on above: Performed By: #### 2 [id number], [id number] #### [facility] [address] [place] [address] Tube Num CSF 1 Invalid Interpretation Code [facility] Comment on above: Performed By: #### 2 [id number], [id number] #### [facility] [address] [place] [address] WBC CSF 3 cells/mcL Normal 0-10 [facility] Comment on above: Performed By: #### 2 [id number], [id number], [id number] #### [facility] [address] [place] [address] CSF Glucoseon 11-19-2020 Glucose (CSF) [Mass/Vol] 54 mg/dL Normal 46-70 [facility] Comment on above: Performed By: #### 2 [id number], [id number] #### [facility] [address] [place] [address] CSF Proteinon 11-19-2020 Protein (CSF) [Mass/Vol] 30.0 mg/dL Normal 14.0-45.0 [facility] Comment on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
[2023-09-07 12:36] LABS: Bilirubin Urine NEGATIVE (NEGATIVE); Blood Urine TRACE-I (NEGATIVE); Color Urine YELLOW (YELLOW); Glucose Urine UA NEGATIVE (NEGATIVE); Ketones Urine NEGATIVE (NEGATIVE); Leukocyte Esterase Urine NEGATIVE (NEGATIVE); Nitrite Urine NEGATIVE (NEGATIVE); Protein Urine NEGATIVE (NEG/TRACE); Specific Gravity Urine 1.025 (1.005-1.025); Urobilinogen Urine 0.2 EU/dL (0.2-1.0)
[2023-09-07 12:42] LABS: Clarity Urine SLIGHTLY CLOUDY (CLEAR); Urine Microscopic Indicated YES
[2023-09-07 12:45] LABS: RBC Urine 0-2 #/HPF (0-2); WBC Urine 0-2 #/HPF (NONE SEEN)
[2023-09-07 12:46] LABS: Bacteria Urine TRACE #/HPF (NONE SEEN); Cast Seen? NONE SEEN #/LPF (NONE SEEN); Crystals Seen? None Seen #/HPF (None Seen); Mucus Urine SMALL (NONE SEEN); Squamous Epithelial Cell Urine RARE #/LPF (NONE/RARE); Trichomonas Urine NONE SEEN (NONE SEEN); Urine Culture Indicated NO
[2023-09-07 13:19] LABS: HCG Qualitative Urine* NEGATIVE (NEGATIVE)
--- NOTE | 2023-09-07 13:33 | ED_ITS ---
HPI - Female Genitourinary General Chief complaint: Urogenital-Female Stated complaint: STD TESTING Time Seen by Provider: 09/07/23 11:36 Source: patient Mode of arrival: walk-in Limitations: no limitations History of Present Illness HPI Narrative: 18-year-old female presents here with chief complaint of vaginal discharge. Patient states she's had issue with vaginal discharge in the past. She is concerned because she had a new partner recently. Denies any burning. Denies a history of known . She states she has a malodorous discharge consistent with when she had BV in the past. She has no abdominal pain. She denies fevers or chills. Related Data Home Medications Medication Instructions Recorded Confirmed isotretinoin 40 mg capsule 40 mg PO DAILY 07/17/23 09/07/23 (Accutane) Previous Rx's Medication Instructions Recorded metronidazole 500 mg tablet 500 mg PO BID 7 days #14 tabs 09/07/23 Allergies Allergy/AdvReac Type Severity Reaction Status Date / Time No Known Drug Allergies Allergy Verified 09/07/23 11:37 Review of Systems ROS Narrative All Systems are negative except as noted/marked.All systems reviewed and otherwise negative PFSH [facility] Social History Smoking status: Never smoker Exam Narrative Exam Narrative: Nurses note and vital signs reviewed and patient is not hypoxic. General: The patient appears well and in no apparent distress. Patient is resting comfortably on cart. Skin: Warm, dry, no pallor noted. There is no rash noted. Head: Normocephalic, atraumatic Eye: Normal conjunctiva, no drainage, EOMI. PERRL Ears, Nose, Mouth, and Throat: oral mucosa is moist. Nares patent. Mouth without vesicles. Ear canals patent. Tm's without Erythema Back: non-tender, no CVA tenderness bilaterally to percussion. GI: Normal bowel sounds, no tenderness to palpation, no masses appreciated. No rebound, guarding, or rigidity noted. : subjective states clear vaginal discharge malodorous, denies pain, vaginal bleeding, Musculoskeletal: The patient has no evidence of calf tenderness, no pitting edema, symmetrical pulses noted bilaterally Neurological: A&O x4, normal speech Psychiatric: Cooperative Constitutional Vital Signs, click to edit/add: Last Vital Signs Temp 98.4 F 09/07/23 11:37 Pulse 77 09/07/23 11:37 Resp 18 09/07/23 11:37 BP 113/83 09/07/23 11:37 Pulse Ox 100 09/07/23 11:37 O2 Del Method Room Air 09/07/23 11:37 Course Vital Signs Vital signs: Vital Signs Temperature 98.4 F 09/07/23 11:37 Pulse Rate 77 09/07/23 11:37 Respiratory Rate 18 09/07/23 11:37 Blood Pressure 113/83 09/07/23 11:37 Pulse Oximetry 100 09/07/23 11:37 Oxygen Delivery Method Room Air 09/07/23 11:37 Temperature 98.4 F 09/07/23 11:37 Pulse Rate 77 09/07/23 11:37 Respiratory Rate 18 09/07/23 11:37 Blood Pressure 113/83 09/07/23 11:37 Pulse Oximetry 100 09/07/23 11:37 Oxygen Delivery Method Room Air 09/07/23 11:37 MDM - Female Genitourinary MDM Narrative Medical decision making narrative: She presents her chief complaint of having clear malodorous vaginal discharge. She is only concern for bacterial vaginosis. Cultures and urine were obtained and sent. They're currently pending. Patient states her symptoms are similar to bacterial vaginosis.Cultures are currently pending. Patient states she is asymptomatic today. She'll prophylactically treated with Flagyl and discharged home. Patient will be notified if cultures to return. Patient told to abstain from intercourse until cultures are known. Lab Data Labs: Lab Results 09/07/23 Range/Units 12:25 Urine Color Yellow (YELLOW) Urine Clarity Slightly cloudy A (CLEAR) Urine pH 6.0 (5.0-9.0) Ur Specific Todd 1.025 (1.005-1.025) Urine Protein Negative (NEG/TRACE) mg/dL Urine Glucose (UA) Negative (NEGATIVE) mg/dL Urine Ketones Negative (NEGATIVE) mg/dL Urine Occult Blood Trace-i (NEGATIVE) Urine Nitrite Negative (NEGATIVE) Urine Bilirubin Negative (NEGATIVE) Urine Urobilinogen 0.2 (0.2-1.0) EU/dL Ur Leukocyte Esterase Negative (NEGATIVE) Urine RBC 0-2 (0-2) #/HPF Urine WBC 0-2 A (NONE SEEN) #/HPF Ur Squamous Epith Cells Rare (NONE/RARE) #/LPF Urine Crystals None seen (None Seen) #/HPF Urine Bacteria Trace A (NONE SEEN) #/HPF Urine Casts None seen (NONE SEEN) #/LPF Urine Mucus Small A (NONE SEEN) Urine Trichomonas None seen (NONE SEEN) Ur Culture Indicated? No Urine HCG, Qual Negative (NEGATIVE) Discharge Plan Discharge Chief Complaint: Urogenital-Female Clinical Impression: Vaginal discharge Patient Disposition: Home, Self-Care Time of Disposition Decision: 13:28 Condition: Good Prescriptions / Home Meds: New metronidazole 500 mg tablet 500 mg PO BID 7 Days Qty: 14 0RF No Action isotretinoin [Accutane] 40 mg capsule 40 mg PO DAILY Rx Instructions: must administer with a meal/food Instructions: Vaginal Discharge (ED) Stand Alone Forms: Portal Instructions Referrals: FRANKLIN BUTLER [Primary Care Provider] - 1 week
[2023-09-12 03:08] LABS: Neisseria gonorrhoeae, NAA Negative (Negative)
== END 2023-09-07 13:41 | disposition home or self-care (01) ==
PROVIDERS: Physician Assistant; Emergency Provider Emergency Medicine Emergency Medical Services; PCP Nurse Practitioner Family
DX: N89.8 Other specified noninflammatory disorders of vagina (principal)
CPT/HCPCS: 81001; 84703; 87491; 87591; 99283

== ENCOUNTER 2024-02-22 01:48 | Emergency (ER) | payer MEDICAID, SELFPAY ==
[2024-02-22 01:52] VITALS: BP 123/76; PULSE 98; TEMP 37.2; O2SAT 100; BMI 29.1
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
--- NOTE | 2024-02-22 02:01 | ED_ITS ---
HPI - URI/Sore Throat General Chief Complaint: Upper Respiratory Infection Stated Complaint: SORE THROAT Time Seen by Provider: 02/22/24 01:51 Source: patient Limitations: no limitations History of Present Illness HPI Narrative: complains of sore throat. able to swallow. no fever or abdominal pain. No associated nausea Related Data Allergies Allergy/AdvReac Type Severity Reaction Status Date / Time No Known Drug Allergies Allergy Verified 02/22/24 01:55 Review of Systems ROS Status of ROS 10 or more systems reviewed and unremark able except as noted in history and below PFSH PFS Social History Smoking status: Never smoker Exam Constitutional Vital Signs, click to edit/add: Last Vital Signs Temp 98.9 F 02/22/24 01:52 Pulse 98 H 02/22/24 01:52 Resp 18 02/22/24 01:52 BP 123/76 02/22/24 01:52 Pulse Ox 100 02/22/24 01:52 O2 Del Method Room Air 02/22/24 01:52 Common normals: no apparent distress, average body habitus, oriented x3, no limitations, healthy appearing, alert and well nourished [facility] Common normals: normocephalic and head/scalp atraumatic Other: mild erythema of pharynx. enlarged equivocal tonsils Eye Common normals: EOMs intact bilaterally and conjunctivae normal Respiratory Common normals: normal respiratory effort, no retractions, no use of accessory muscles and clear to auscultation bilaterally Cardio Common normals: regular rate, regular rhythm, S1 normal heart sound and S2 normal heart sound Extremity Common normals: normal to inspection and full ROM Neuro Common normals: oriented x3, CN's II-XII intact bilaterally, moves all extremiti es and no focal motor deficits Psych Appearance: grossly normal Course Vital Signs Vital signs: Vital Signs Temperature 98.9 F 02/22/24 01:52 Pulse Rate 98 H 02/22/24 01:52 Respiratory Rate 18 02/22/24 01:52 Blood Pressure 123/76 02/22/24 01:52 Pulse Oximetry 100 02/22/24 01:52 Oxygen Delivery Method Room Air 02/22/24 01:52 Temperature 98.9 F 02/22/24 01:52 Pulse Rate 98 H 02/22/24 01:52 Respiratory Rate 18 02/22/24 01:52 Blood Pressure 123/76 02/22/24 01:52 Pulse Oximetry 100 02/22/24 01:52 Oxygen Delivery Method Room Air 02/22/24 01:52 MDM - URI/Sore Throat MDM Narrative Medical decision making narrative: presents complaining of sore throat. Does have erythema and tonsillar enlargement. strep screen neg. Patient informed of working diagnosis of pharyngitis /tonsillar hyperplasia. Discharged home with prescription for amoxicillin and advised to follow up with the family doctor Lab Data Labs: Lab Results 02/22/24 Range/Units 01:56 Streptococcus Screen Negative Discharge Plan Discharge Stand Alone Forms: Portal Instructions Chief Complaint: Upper Respiratory Infection Clinical Impression: Hyperplasia of tonsils Patient Disposition: Home, Self-Care Print Language: Iraqi Instructions: Tonsillitis (ED) Referrals: FRANKLIN BUTLER [Primary Care Provider] - 1 week
[2024-02-22 02:09] LABS: Internal Control Within Normal Limits; Strep A Antigen Screen Negative
== END 2024-02-22 03:10 | disposition home or self-care (01) ==
PROVIDERS: Emergency Provider Internal Medicine; PCP Nurse Practitioner Family
DX: J35.1 Hypertrophy of tonsils (principal)
CPT/HCPCS: 87070; 87880; 99283

== ENCOUNTER 2024-03-12 13:02 | Outpatient (OUT) | payer MEDICAID, SELFPAY ==
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
[2024-03-12 13:51] LABS: Basophils Percent Auto 0.5 % (0.2-2.0); Eosinophils Absolute Auto 0.1 10^3/uL (0.0-0.7); Eosinophils Percent Auto 1.7 % (0.9-7.0); Estimated Average Glucose 103 mg/dL; Glycohemoglobin A1C 5.2 % (4.5-6.2); Hematocrit 41.7 % (36.0-48.0); Hemoglobin 13.6 g/dL (12.0-16.0); Immature Granulocytes Abs Auto 0.01 10^3/uL (0.00-0.03); Immature Granulocytes Pct Auto 0.2 % (0.0-0.5); Lymphocytes Absolute Auto 1.3 10^3/uL (1.2-3.8); Lymphocytes Percent Auto 30.4 % (20.5-60.0); Mean Corpuscular HGB Conc 32.6 g/dL (29.9-35.2); Mean Corpuscular Hemoglobin 30.4 pg (26.7-34.0); Mean Corpuscular Volume 93.3 fL (81.0-99.0); Mean Platelet Volume 10.3 fL (9.5-13.5); Monocytes Absolute Auto 0.4 10^3/uL (0.3-0.8); Monocytes Percent Auto 9.4 % (1.7-12.0); Neutrophils Absolute Auto 2.4 10^3/uL (1.4-6.5); Neutrophils Percent Auto 57.8 % (43.0-75.0); Platelet Count 205 10^3/uL (150-450); Red Blood Count 4.47 10^6/uL (4.20-5.40); White Blood Count 4.1 10^3/uL (4.0-11.0)
[2024-03-12 15:00] LABS: Alanine Aminotransferase 16 U/L (14-59); Albumin Globulin Ratio 0.9; Albumin Level 3.7 g/dL (3.4-5.0); Alkaline Phosphatase 87 U/L (46-116); Anion Gap 11.4; Aspartate Amino Transferase 9 U/L (15-37); BUN Creatinine Ratio 9.1; Bilirubin Total 0.3 mg/dL (0.2-1.0); Carbon Dioxide 26.6 mmol/L (21.0-32.0); Chloride 104 mmol/L (98-107); Chol HDL Ratio 4.3; Cholesterol 244 mg/dL (<=200); Estimated GFR (African America >60 (>=60); Estimated GFR (Non-African Ame >60 (>=60); Free T3 2.57 pg/mL (2.18-3.98); Globulin 4.2 g/dL; Glucose 90 mg/dL (74-106); HDL Cholesterol 57 mg/dL (40-60); Sodium 138 mmol/L (136-145); Thyroid Stimulating Hormone 2.091 uIU/mL (0.358-3.740); Total Protein 7.9 g/dL (6.4-8.2); Triglycerides 45 mg/dL (<=150)
[2024-03-14 14:08] LABS: Insulin 12.2 uIU/mL (2.6-24.9)
== END 2024-03-12 13:03 | disposition home or self-care (01) ==
LOC: LAB 13:02
PROVIDERS: PCP Nurse Practitioner Family; Visit Provider Nurse Practitioner Family
DX: R63.5 Abnormal weight gain (principal)
CPT/HCPCS: 36415; 80053; 80061; 83036; 83525; 84436; 84443; 84481; 85025

== ENCOUNTER 2024-05-10 12:15 | Outpatient (OUT) | payer MEDICAID, SELFPAY ==
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
[2024-05-10 13:25] LABS: Internal Control Within Normal Limits; Strep A Antigen Screen Negative
[2024-05-10 15:16] LABS: Internal Control Within Normal Limits; Mono Screen NEGATIVE (NEGATIVE)
== END 2024-05-10 12:16 | disposition home or self-care (01) ==
LOC: LAB 12:17
PROVIDERS: PCP Nurse Practitioner Family; Visit Provider Nurse Practitioner Family
DX: J02.9 Acute pharyngitis, unspecified (principal)
CPT/HCPCS: 86308; 87070; 87150; 87880

== ENCOUNTER 2024-06-04 13:46 | Outpatient (OUT) | payer MEDICAID, SELFPAY ==
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
[2024-06-04 14:08] LABS: Internal Control Within Normal Limits; Strep A Antigen Screen Negative
== END 2024-06-04 13:47 | disposition home or self-care (01) ==
LOC: LAB 13:48
PROVIDERS: PCP Nurse Practitioner Family; Visit Provider Nurse Practitioner Family
DX: J02.9 Acute pharyngitis, unspecified (principal)
CPT/HCPCS: 87070; 87880

== ENCOUNTER 2024-10-01 10:45 | Outpatient (OUT) | payer MEDICAID, SELFPAY ==
--- OUTSIDE RECORDS SUMMARY | 2024-10-01 11:06 | XMS_ITS | CCD ---
Author Organization [facility] Care Team Providers Care Makeup Artist Name Role Phone Lillie Vreenice Unavailable MISC, DR LUJAN Consulting Unavailable MISC, DR LUJAN Attending Unavailable MISC, DR LUJAN Admitting Unavailable VERENICE BUTLER Primary Care Unavailable VERENICE BUTLER Consulting Unavailable VERENICE BUTLER Attending Unavailable VERENICE BUTLER Admitting Unavailable VERENICE BUTLER Primary Care Unavailable VERENICE BUTLER Consulting Unavailable VERENICE BUTLER Attending Unavailable MARLO, DR LUJAN Primary Care Unavailable VERENICE BUTLER Admitting Unavailable Aurea Palumbo MD Primary Care Provider MARLEY SALEEM Referring Unavailable AUREA PALUMBO Primary Care Unavailable HAN Garcia Attending Provider ARLENE PLAZA Attending Unavailable VERENICE BUTLER Referring Unavailable Verenice Butler MD Unavailable Kerline Garcia Attending Unavailable Kerline Garcia Admitting Unavailable Medications Current Medications Medication Drug Class(es) Dates Sig (Normalized) Sig (Original) famotidine 20 mg oral tablet (2 sources) Histamine-2 Receptor Antagonist Start: 06-23-2024 End: 09-21-2024 take 1 tablet by mouth at bedtime famotidine (Pepcid) 20 MG tablet Indications: LPRD (laryngopharyngea l reflux disease) Take 1 tablet (20 mg) by mouth at bedtime 90 tablet 06/23/2024 09/21/2024 Active ISOtretinoin 40 mg oral capsule (1 source) Retinoid Start: 01-01-2023 CLARAVIS 40 MG chemo capsule omeprazole 40 mg delayed release oral capsule (2 sources) Proton Pump Inhibitor Start: 06-23-2024 End: 09-21-2024 take 1 capsule by mouth before mealtime omeprazole (PriLOSEC) [address] capsule Indications: LPRD (laryngopharyngea l reflux disease) Take 1 capsule (40 mg) by mouth in the morning. Take before meals. Do not crush or chew.. 90 capsule 06/23/2024 09/21/2024 Active Verapamil (1 source) Calcium Channel Travis Verapamil HCl Active Completed/Discontinued Medications Medication Drug Class(es) Dates Sig (Normalized) Sig (Original) Clindamycin-Benzoyl Peroxide (2 sources) Start: 06-17-2024 End: 06-17-2024 Clindamycin-Benzo yl Peroxide Discontinued TOPICAL June 17, 2024 12:00am June 17, 2024 4:06pm dextromethorphan hydrobromide 1.5 mg/ml / pyrilamine maleate 1.5 mg/ml oral solution (1 source) Uncompetitive V-fxgdmz-A-aspartat e Receptor Antagonist, Sigma-1 Agonist Start: 04-01-2021 [place] DM 7.5-7.5 MG/5ML 10 ml Orally every 6-8 hours as needed for 8 days Mar, Not-Taking fluticasone propionate 0.05 mg/actuat metered dose nasal spray (1 source) Corticosteroid Start: 04-01-2021 take 1 spray(s) nasal route once daily Fluticasone Propionate 50 MCG/ACT 1 spray in each nostril Nasally Once a day for 30 day(s) Mar, Not-Taking ketoconazole 20 mg/ml medicated shampoo (2 sources) Azole Antifungal Start: 06-17-2024 End: 06-17-2024 Ketoconazole Discontinued TOPICAL June 17, 2024 12:00am June 17, 2024 4:06pm Sertraline (1 source) Serotonin Reuptake Inhibitor Zoloft Not-Taking Problems Active Problems Problem Classification Problem Date Documented Date Episodic/Chronic Acute and chronic tonsillitis (2 sources) Hypertrophy of tonsils; Translations: [Hypertrophy of tonsils] 06-23-2024 Chronic Esophageal disorders (2 sources) Laryngopharyngeal reflux; Translations: [Gastro-esophageal reflux disease without esophagitis] 06-23-2024 Chronic Immunizations and screening for infectious disease (2 [...] [TRANSIENT ALTERATION OF AWARENESS] Onset: 11-06-2022 Episodic Residual codes; unclassified (1 source) High risk heterosexual behavior; Translations: [High risk heterosexual behavior] Onset: 06-19-2024 Episodic Unclassified (3 sources) CONTACT W/AND (SUSP) [...] Test Name Value Interpretation Reference Range Facility Chlamydia/GC/Trich NAAon Chlamydia Trachomotis, KIMMY Negative Normal Negative [facility] Comment on above: Performed By: #### G CCHLAMTRI #### [facility] , Neisseria Gonorrhoeae, KIMMY Negative Normal Negative [facility] Comment on above: Performed By: #### G CCHLAMTRI #### [facility] , Trichomonas KIMMY Negative Normal Negative [facility] Comment on above: Result Comment: Perf ormed at: =G - [facility] [address] [place] [id number] [place] Sawyer: Nalini Burger MD, Phone: [phone] PERFORMED BY: [address] [place] [address] [place] [address] PATHOLOGIST MANAGER INTENSIVE CARE TEX CASTELLANOS M.D. Performed By: #### G CCHLAMTRI #### [facility] , CBC AUTO DIFFon 12-26-2022 BASO # 0.0 103/ul Normal 0.0-0.1 [facility] Comment on above: Performed By: #### C BC #### [facility] [address] [address] [address] Lyubov Guzman Basophils/100 WBC (Bld) 0.5 % Normal 0.2-2.0 [facility] Comment on above: Performed By: #### C BC #### [facility] [address] [place] [address] Dr. Lyubov Guzman EO # 0.0 103/ul Normal 0.0-0.7 [facility] Comment on above: Performed By: #### C BC #### [facility] [address] [address] [address] Lyubov uGzman Eosinophils/100 WBC (Bld) 0.9 % Normal 0.9-7.0 [facility] Comment on above: Performed By: #### C BC #### [facility] [address] [address] [address] Lyubov Guzman Erythrocyte distribution width (RBC) [Ratio] 12.9 % Normal 11.0-15.0 [facility] Comment on above: Performed By: #### C BC #### [facility] [address] [place] [address] Dr. Lyubov Guzman Hematocrit (Bld) [Volume fraction] 42.1 % Normal 36.0-48.0 [facility] Comment on above: Performed By: #### C BC #### [facility] [address] [place] [address] Dr. Lyubov Guzman Hemoglobin (Bld) [Mass/Vol] 13.4 g/dL Normal 12.0-16.0 [facility] Comment on above: Performed By: #### C BC #### [facility] [address] [place] [address] Dr. Lyubov Guzman IG # 0.00 10e3/ul Normal 0.00-0.03 [facility] Comment on above: Performed By: #### C BC #### [facility] [address] [place] [address] Dr. Lyubov Guzman IG % 0.0 % Normal 0.0-0.5 [facility] Comment on above: Performed By: #### C BC #### [facility] [address] [place] [address] Dr. Lyubov Guzman LYMPH # 1.3 103/ul Normal 1.2-3.8 [facility] Comment on above: Performed By: #### C BC #### [facility] [address] [place] [address] Dr. Lyubov Guzman Lymphocytes/100 WBC (Bld) 31.5 % Normal 20.5-60.0 [facility] Comment on above: Performed By: #### C BC #### [facility] [address] [place] [address] Dr. Lyubov Guzman MANUAL DIFF REQ NO Normal [facility] Comment on above: Performed By: #### C BC #### [facility] [address] [place] [address] Dr. Lyubov Guzman MCH (RBC) [Entitic mass] 27.9 pg Normal 26.7-34.0 [facility] Comment on above: Performed By: #### C BC #### [facility] [address] [place] [address] Dr. Lyubov Guzman MCHC (RBC) [Mass/Vol] 31.8 g/dL Normal 29.9-35.2 [facility] Comment on above: Performed By: #### C BC #### [facility] [address] [address] [address] Lyubov Guzman MCV (RBC) [Entitic vol] 87.5 fL Normal 81.0-99.0 [facility] Comment on above: Performed By: #### C BC #### [facility] [address] [address] [address] Lyubov Guzman MONO # 0.4 103/ul Normal 0.3-0.8 [facility] Comment on above: Performed By: #### C BC #### [facility] [address] [address] [address] Lyubov Guzman Monocytes/100 WBC (Bld) 10.1 % Normal 1.7-12.0 [facility] Comment on above: Performed By: #### C BC #### [facility] [address] [place] [address] Dr. Lyubov Guzman NEUT # 2.4 103/ul Normal 1.4-6.5 [facility] Comment on above: Performed By: #### C BC #### [facility] [address] [place] [address] Dr. Lyubov Guzman Neutrophils/100 WBC (Bld) 57.0 % Normal 43.0-75.0 [facility] Comment on above: Performed By: #### C BC #### [facility] [address] [place] [address] Dr. Lyubov Guzman Platelet mean volume (Bld) [Entitic vol] 9.8 fL Normal 9.5-13.5 [facility] Comment on above: Performed By: #### C BC #### [facility] [address] [place] [address] Dr. Lyubov Guzman PLT 182 103/ul Normal 150-450 [facility] Comment on above: Performed By: #### C BC #### [facility] [address] [place] [address] Dr. Lyubov Guzman RBC 4.81 106/ul Normal 4.20-5.40 [facility] Comment on above: Performed By: #### C BC #### [facility] [address] [address] [address] Lyubov Guzman WBC 4.3 103/ul Normal 4.0-11.0 [facility] Comment on above: Performed By: #### C BC #### [facility] [address] [address] [address] Lyubov Guzman SGOTon 12-26-2022 AST [Catalytic activity/Vol] 14 U/L Critically low 15-37 [facility] Comment on above: Performed By: #### A LT, TRIG, AST #### [facility] [address] [address] [address] Lyubov Guzman SGPTon 12-26-2022 ALT [Catalytic activity/Vol] 18 U/L Normal 14-59 [facility] Comment on above: Performed By: #### A LT, TRIG, AST #### [facility] [address] [place] [address] Dr. Lyubov Guzman TRIGLYCERIDEon 12-26-2022 Triglyceride [Mass/Vol] 28 mg/dL Critically low 53-208 [facility] Comment on above: Performed By: #### A LT, TRIG, AST #### [facility] [address] [place] [address] Dr. Lyubov Guzman ECHOCARDIO M/2D COMPLETEon 0 11-06-2022 ECHOCARDIO M/2D COMPLETE Patient Name Site Name MARYCARMEN PATEL [facility] Account No Medical Record Number Age Sex Date Time [id number] F 11/06/2022 14:24 At the Request [...] M.D. on 11/07/2022 at 19:00 Normal [facility] Covid-19 PCR (CVDTBH)on 07-13 SARS-CoV-2 (COVID-19) RNA KIMMY+probe Ql (Unsp spec) Not detected Normal NOT DETECTED [facility] Comment on above: Result Comment: When diagnostic [...] for this test is supported by the [place] [employer]'s declaration that [...] used). Performed By: #### C VDTBH #### [facility] [address] [place] [address] Dr. Lyubov Guzman GROUP A STREP CULTUREon 07-13 S. pyogenes Ag Ql (Unsp spec) Culture Observations: NEGATIVE FOR GROUP A STREPTOCOCCUS. Normal [facility] Comment on above: Performed By: #### G RASTCX #### [facility] [address] [place] [address] Dr. Lyubov Guzman INFLUENZA A AND B AGon 08-09 INFLUANEGH SEE BELOW Normal [facility] Comment on above: Result Comment: Nega tive for Flu A protein angiten. Infection due to Flu A cannot be ruled out. Flu A angiten in the sample may be below the detection limit of the test. Performed By: #### I NFLUAB #### [facility] [address] [place] [address] Dr. Lyubov Guzman INFLUBNEGH SEE BELOW Normal [facility] Comment on above: Result Comment: Nega tive for Flu B protein antigen. Infection due to Flu B cannot be ruled out. Flu B antigen in the sample may be below the detection limit of the test. Performed By: #### I NFLUAB #### [facility] [address] [address] [address] Lyubov Guzman INFLUENZA A AG Negative Normal NEGATIVE SEE COMMENT [facility] Comment on above: Performed By: #### I NFLUAB #### [facility] [address] [place] [address] Dr. Lyubov Guzman INFLUENZA B AG Negative Normal NEGATIVE SEE COMMENT [facility] Comment on above: Performed By: #### I NFLUAB #### [facility] [address] [place] [address] Dr. Lyubov Guzman INTERNAL CONTROLS Within Normal Limits Normal Wi thin Normal Limits [facility] Comment on above: Performed By: #### I NFLUAB #### [facility] [address] [place] [address] Dr. Lyubov Guzman MONOon 08-09-2022 Monocytes (Bld) [#/Vol] Positive Abnormal NEGATIVE [facility] Comment on above: Performed By: #### M NORMA #### [facility] [address] [place] [address] Dr. Lyubov Guzman STREPT SCREENon 08-09-2022 STREP SCREEN A Negative Normal NEGATIVE [facility] Comment on above: Performed By: #### S SCRN #### [facility] [address] [place] [address] Dr. Lyubov Guzman XR hand RT min 3V*on 021 XR hand RT min 3V* [facility] [employer] Other XR hand RT min 3V* [facility] [employer] Other XR hand RT min 3V* [address] [place] [address] [employer] Other XR hand RT min 3V* [place] [address] [employer] Other XR hand RT min 3V* XRay Report [employer] Other XR hand RT min 3V* Signed [employer] Other XR hand RT min 3V* Patient: Marycarmen Patel MR#: [id number] [employer] Other XR hand RT min 3V* [id number] [employer] Other XR hand RT min 3V* : 2005 Acct:[id number] [employer] Other XR hand RT min 3V* Age/Sex: 16 / F ADM Date: 06/24/21 [employer] Other XR hand RT min 3V* Loc: XDUCLY Room: Type: [facility] [employer] Other XR hand RT min 3V* Attending Dr: Verenice PRESSLEY [employer] Other XR hand RT min 3V* Ordering Provider: HUAN Shrestha [employer] Other XR hand RT min 3V* Date of Service: 06/24/21 [employer] Other XR hand RT min 3V* XR/XR hand RT min 3V*: RIGHT HAND INJURY [employer] Other XR hand RT min 3V* Copies to: HUAN Shrestha [employer] Other XR hand RT min 3V* XR hand RT min 3V* 06/24/2021 5:59 PM [employer] Other XR hand RT min 3V* SIGNS AND SYMPTOMS: RIGHT HAND INJURY [employer] Other XR hand RT min 3V* PROTOCOL: Frontal, lateral, and oblique radiographs of the right hand [employer] Other XR hand RT min 3V* COMPARISON: None [employer] Other XR hand RT min 3V* FINDINGS: [employer] Other XR hand RT min 3V* The bones are in anatomic alignment. The joint spaces are preserved. There is no fracture or [employer] Other XR hand RT min 3V* dislocation. No significant soft tissue swelling. [employer] Other XR hand RT min 3V* XR/XR hand RT min 3V* [employer] Other XR hand RT min 3V* IMPRESSION: [employer] Other XR hand RT min 3V* No acute bony injury. [employer] Other XR hand RT min 3V* Impression dictated by: Piter Fox M.D.06/24/2021 6:04 PM [employer] Other XR hand RT min 3V* Dictation Location: [address] [address] [employer] Other XR hand RT min 3V* Transcribed By: [facility] 06/24/21 [facility] [employer] Other XR hand RT min 3V* Dictated By: Piter Fox II, MD 06/24/21 1800 [employer] Other XR hand RT min 3V* Signed By: [employer] Other XR hand RT min 3V* 06/24/[address] [place] [address] [employer] Other Coding Summary.on 03-23-2021 Coding Summary. CD:[id number] Gh0bWw+PGhlYWQ+PE1FV XRpZ95gvTZuyR5OS3wTW X8NADIQRPPSRD0QSJ7pt HK7QVcfN4CzwmOq FwyybHDnYS64QWd6WOP5 pJvzZKcbtC9tgOCeX2n0 AgFeLF12xG54TTrbCXAe UwV1MqRkurdznGGv W5lqBfVzsKGuBjk+PHRh YmxlIHdpZHRoPScxMDAl BnPqjZnaQT5tLi6aPZZe LWNvbGxhcHNlOiBj l1nvEAYiQKueZY5haSvp K3EzlPN7JZYsz7b0Li63 dHI+QPVkZGG8gVgpEJhc c211GiNgl6fsDVM6 nUQfZIauTDA1V94cv3Z4 ICQgCYWdWTN5fCK7fH0w cYvvaeenI2JfyIAvScM0 NNB1tNPjmR9dwEay xonxrU0mGks+B81TLF3W OSYOOX5AZvk4Q1LnQrfj dHI+YG30IQOkHT44tIVl tWDjr5pdyQd7YmAl FKRrOJS6oAvoINggr0Lo PIObV03oiCRco6E4MGBp vQheeDApSiYnoDD5sD5a XFdvzdxig2qzlrdo Hadmu5evxu70fP35P84e ZUivIFMuRHR4SVGnCBAw pKmvev1wjV6oOj0+IDxj a3hcl9knoNo5KxUt YYDgisOixYlyIYQ9s9Vh Jy24Z7AquIzki4EnCck8 gg75fQPth5Q1pGX3IVzw VVEjuB6aFBkyHgH7 ZAHwUhYjrG55eVUgOIsb Gd7cuDdewCfeKL4oGCAf dyufPVWewW3pUKWlaWLb cImyLS8mJOArxwfy l977UqKgKMI5TLZraMHc Q4RlxV0dSyCkHKLgLEAr F0SsuZSiTBggX407FVzj RnZ2OHOxobJzG3Kq HYAdpOanXfD7j0V6Nq8Y v5YbriuqTSR0XSxoNQX0 IyP4IkHeLbQ4Q7TsIww2 WJXlhXkuDF8sB6Ap IOWpcmceeqenfZS5WFBe ALOqgN66hCItCNukTw0k q7G1f365YFJpFMJpuX45 Dl0lqLipBRYzcFEB gF7zrbcqs7xqrcrqNtFi TNJfEGl6VHs4HFOkcTkd EmGeBQV3LbH6STF5yISd aQ9hcPzcinydeA0w Oyc+M39jtY5nAXG0WTH2 mueoRJDyxrAhYB40YP52 Q3PyDorzcVLqjUT+PGRp pcWvaPeaDF4wOlLe b4nmu7AoPFjeD8DeIJFw ZArpSpu3TOZgMKU9zTC0 lI0uSGQaTSmtc2F3xNW4 E4XattBbqg1jz7mc PCXxMMvjO91kwAPgk8U1 ODCdeDF3LIWtbVgmEoDz vC42Juo+BQWjjEnlv8Yi Avkhe0mjq0kvhHg7 IjMwJSIgdmFsaWduPSJ0 k5BbFn12G97gHJfgEPHl GCRfPTQsIMWlhEvazv6r yK8mWv8+PGNvbCB3 wUH9fG3bXBSmXgA7VWlv E948RuMcoMBgDlfxg0de y7wjqYm4SsYgIDZntbAi oXjsPGL9a0QqOh41 D31sXZauTSWpQCCsKLVf LCOdlHmgjz8fwJ5rWd8+ AE2st4uuxc70eD46qFS+ GUUeLSE0zPbrHDjo DHCbfB1lQHccPwC5BEZt AwSyoX80uERdIDypMr3a yBjveZxsKT7mIHClwlbg f757SaXez9cnKFBi dTXbNMutKLM1G45sj2D1 JFAoYKTiATP8dZW6vN0e bGlnbjogbGVmdDsgdmVy iQfqDYfaYSvmB672 IHRvcDsnPlBhdGllbnQg JiKvZNq8N7LqRuc1RRXt zTydOK6wgNEbRQwiId2r nYzfrUhiPK1pNUKw rxjxm732WnWma8zcDJGu fJFoRLiaIMQ4W43yu8D0 SLLiPIJnZDN6yEY6jO5m bGlnbjogbGVmdDsg gqSghCmdQJhgTXcsJ990 IHRvcDsnPkJpcnRoIERh sUV0YX67FO71dGPpg8G3 xRL3W0JoQZRorlxj dgcczUA2LDMvSTJarQ32 Mw7leJmeSv6jOFIcKEN2 ZFGcaBSaH1WfdD0aTwZg WITvWGHpP8ItnSJl EJprY235SFrsEdF4BYYu ulYrI3LyRSHhvCguFxK0 h3A5Bd5ZG7E6KX27TI20 kWOix0L2fYD2B9Lb ZOEmgkxnpqojuOI3GKZu HVTgpJ57Ry7wpJirNz5n LKRpWQE8YZZxzSQpJ5Tg jA6hTlBaLIIsIHXo J9DtnQIxLPgzC456VZbu AuN5QHEtnuGlU4TdEBMv vIvtVyB7n2Y1Dw7DQDs6 UR56XV78jWVnc6B2 xEX7C7RcLHHzccvyptkk nFH1DMJcLJGbeD84No9k eEuxSp4bKWQzHQS1FMKt aYLhD0SglC5kMpGu QXJzLNQpW8CirHEaRXsb V594GMbiXhK6ICAjzvKn X0CuFRMnxFcjJpJ7q1I5 Ze1SYAMsPD91CQY9 pFA8WG48IA27D8CcRqtc dGFibGU+PHRhYmxlIHdp ZHRoPScxMDAlJyBzdHls UJ6uCo7qWDQwBLWf bShfzBTnZkRli0nxDDXt KUcnQC7rcEnmW2PwnNF1 VXCil4k7Gd15H60kI2Jz dXA+ULLtvGR2fRU8 hW1wPaIyGdO2QHntZ236 WmZbsBQzKpfof0rom9us fEj2RsU2IOFmxoHpkVri HJQ4b8JaHu46T53k IHdpZHRoPSIxNSUiIHZh tOuqao5plQ1sQv4+PGNv qXO1pKJ6dV4zRkCbOoC9 KHthI755TrTdkNUn Awsbw0byd0fvlQq4IvSf UURtzlAvzBrnFIR8i8Hu Pa82G1IqaRlsj0NpTcn5 sx86dGExf1V2zWQ7 F6OvIIJtxdbdrFJotXlc UN1eEQLzdhdbOHPhzF9o KPKkP8e6ChRfOvU6WPxz Q1VrflB8OEDihNXm KPhfTSB6B86el1G0ORYi SLZxUXY2uQY6uK2keCnw bjogbGVmdDsgdmVydGlj CGqdZTztB265FDIw wHtwWKKthH7gRGQllSVm wRrpHL9nNWJkpnauTqzL QHkVL4NGHJjpWTQWPQOK VFJMGE80LD50gYId n4W3rXE7L0JxCLUzylox eorbiNY2YXArIKUuhV41 iLPeHEazMx1kc8I4o659 EGIbFVQinQ75Mi4q kBnqXZRiyKJXoO3julei m8qlyruiJcLhKWIvNPj3 CZz5IFTphKbqNdCbTAA6 OzL8QPD7vTEzmL4m hWsuxlsatO6hBvr+MDcv MDEvMjAwMzwvdGQ+PHRk SYN5aIvqTJwjYILhmY8z FHPtP0y1DjWqNoH8 BTcqH4KyMAEnzumtUg32 dZ6sGdWxLbY0HOanK1Dh hgM2ESXjlBKtCAfdZPJ9 E84fj8E9GRXhOLJk GPC0bVI1vJ6ceUbrvicx bGVmdDsgdmVydGljYWwt MQydR139UYVbuBxaOlX2 XXphCIBhIT46EO07 pJVqh7B0iRC5Y5VkUOYq pctgaxowiAE1MCWwALSd mZ18xIPkMYthHa5eu2G1 z312RYNkJWGpzM51 Xi3ywAeiCXRyuZHKjM5t ntzrb6takrxhCtUdQSXn UBx7FBu5BFBjgSoiDqFl YBS9PwG6NFA8yKFy pN4uuBuvctnbsC0kGxw+ RgXzJMwvCX46DZ37eDYo g4P9pZE7K7DrIIYuranq pynspHU0XNGgCENs fS10xFXqSDtyTp7ps2S9 k250UXYdCNZixE21Dr4f oEsvVYYizOCMcS1yodrd o5yppbfnSlUdXXWn SFz7LNk0UITulKvlZgNq OPN6HoM0QPJ7oOFkyG3n cPfmchmteE6eZzu+TGFi WKVbv7Cfp6RrOM73 MM57H7ZtLdcapPLfoNS+ PHRhYmxlIHdpZHRoPScx NEKvGfHjkUnrNO3oSy2j ZGVyLWNvbGxhcHNl NzGug0tzIAChIDekYD5r xFjjQ6HudRP0DENih3z6 Ho90P21fY2SytLH+PGNv cEP3wTX4yT0mLdSt XpG3WEzzC759AgLjeXGj Kfdcy8gfy3vwzDb2FmAo SUQnzySkwUrnGDE1n1Ex Oi93T97oRDhxZCZh XRHzMOKlTIKyjNhozj0c fB2rKx1+GLCptGQ9zCB4 fO7wQxPsZkD8HVtzF601 YrVhuBAeYnutJ81h M0JpzYA+BSUsXsn0NUCs oMymDP0miFClQRxsWl0o CGX2LvBxTbMjWVvtV6Mm ZGRpbmctcmlnaHQ6 GRGcIQWnhF54Nr2hsCav Vp2lKNRkHKC2BXHrsCDl T2NqyS0nEzQsWGYcVEDv N6DksHLzEXwhY949 THxeIhP4SOUvigQkN0Kh RLErfLggXjY6c9F0Hy2T cFshpWAgGY9pIfBgULh6 K8SiUek4BALzaYud CW1paCZxXIrnFe7waWyn iRjkSA3wJFJvjthzj663 YhHyh6qvMYCxcWBbNGgs SEG7G62xw5Y4QYLp CQHwPVT7cMG7uO1qxCwa bjogbGVmdDsgdmVydGlj IKvkKTtvA169ZDSqoGkj EpKHCku5D2WfUyv0 XBRbwIusDZ5zqITpHKou Xv8hiCenfAgcNO5hSUAc junzm799AwCds7erFCVq uIKiMUbwCEV1K32w l2T4BHLpRXZjVAR7tTO0 bV2phYmhgdtjgGHrwArf bgEelInrOXekMWomW682 DWHnzFlvPv6XNzm4 S2EsMhp7ULXsrEwmZZ7k wUQvLMehOi3iqNvqiLtf JS0iHOJvpnaqu858QgLv z5cuFLWahSWzUHon IIN1Q00st8Z6VAXvKZSt PSU0aVB3gN7knRheeiid bGVmdDsgdmVydGljYWwt IAurE827LBEvcBpq PlBheWVyOjwvdGQ+PC90 mf45Z6QdZxfpGje5JLBm XGW2rSG9rM9wWFClDDpb t8W1eVR2K9LhqvCf ci1j (more content not included)... Normal [facility] Physician Orderon 03-22-2021 Physician Order [id number] Normal [facility] CSF Cell Counton 11-19-2020 Clarity (CSF) CLEAR Normal [facility] [place] Comment on above: Performed By: #### 2 [id number] #### [facility] [address] [place] [address] Color (CSF) Colorless Normal [facility] Comment on above: Performed By: #### 2 [id number] #### [facility] [address] [place] [address] RBC Auto (CSF) [#/Vol] 1 High <=0 [facility] Comment on above: Performed By: #### 2 [id number] #### [facility] [address] [place] [address] Tube Num CSF 3 Invalid Interpretation Code [facility] Comment on above: Performed By: #### 2 [id number] #### [facility] [address] [place] [address] WBC CSF 2 cells/mcL Normal 0-10 [facility] Comment on above: Performed By: #### 2 [id number] #### [facility] [address] [place] [address] Clarity (CSF) CLEAR Normal [facility] [place] Comment on above: Performed By: #### 2 [id number], [id number] #### [facility] [address] [place] [address] Color (CSF) Colorless Normal [facility] Comment on above: Performed By: #### 2 [id number], [id number] #### [facility] [address] [place] [address] RBC Auto (CSF) [#/Vol] 3 High <=0 [facility] Comment on above: Performed By: #### 2 [id number], [id number] #### [facility] [address] [place] [address] Tube Num CSF 1 Invalid Interpretation Code [facility] Comment on above: Performed By: #### 2 [id number], [id number], [id number] #### [facility] [address] [place] [address] WBC CSF 3 cells/mcL Normal 0-10 [facility] Comment on above: Performed By: #### 2 [id number], [id number], [id number] #### [facility] [address] [place] [address] CSF Glucoseon 11-19-2020 Glucose (CSF) [Mass/Vol] 54 mg/dL Normal 46-70 [facility] Comment on above: Performed By: #### 2 [id number], [id number], [id number] #### [facility] [address] [place] [address] CSF Proteinon 11-19-2020 Protein (CSF) [Mass/Vol] 30.0 mg/dL Normal 14.0-45.0 [facility] Comment on above: Performed By: #### 2 [id number], [id number], [id number] #### [facility] [address] [place] [address] Vital Signs Date Time Vital Sign Value Performing Clinician Facility 06-23-2024 11:47-0400 Body height 165.1 cm Arlene Plaza MD Work Phone: [facility] 06-23-2024 11:47-0400 Body mass index (BMI) [Ratio] 30.45 kg/m2 Arlene Plaza MD Work Phone: [facility] 06-23-2024 11:47-0400 Body weight 83.01 kg Arlene Plaza MD Work Phone: [facility] 06-23-2024 11:47-0400 Diastolic blood pressure 80 mm[Hg] Arlene Plaza MD Work Phone: [facility] 06-23-2024 11:47-0400 Systolic blood pressure 110 mm[Hg] Arlene Plaza MD Work Phone: [facility] 06-17-2024 16:06-0400 Body height 165.1 cm [facility] 06-17-2024 16:06-0400 Body mass index (BMI) [Ratio] 30.3 kg/m2 [facility] 06-17-2024 16:06-0400 Body temperature 98.2 [degF] [facility] 06-17-2024 16:06-0400 Body weight 82.66 kg [facility] 06-17-2024 16:06-0400 Diastolic blood pressure 94 mm[Hg] [facility] 06-17-2024 16:06-0400 Heart rate 88 /min [facility] 06-17-2024 16:06-0400 Respiratory rate 18 /min [facility] 06-17-2024 16:06-0400 SaO2% (BldA) [Mass fraction] 96 % [facility] 06-17-2024 16:06-0400 Systolic blood pressure 135 mm[Hg] [facility] 06-24-2021 18:20-0400 Body height 165.1 cm Verenice Rodriguezmond Other [facility] [facility] [employer] Other 06-24-2021 18:20-0400 Body mass index (BMI) [Ratio] 25.46 kg/m2 Verenice Rodriguezmond Other [employer] Other 06-24-2021 18:20-0400 Body temperature 97.8 [degF] Verenice Rodriguezmond Other [employer] Other 06-24-2021 18:20-0400 Body weight 69.4 kg Verenice Rodriguezmond Other [employer] Other 06-24-2021 18:20-0400 Diastolic blood pressure 71 mm[Hg] Verenice Lillie Other [employer] Other 06-24-2021 18:20-0400 Respiratory rate 18 /min Verenice Lillie Other [employer] Other 06-24-2021 18:20-0400 SaO2% (BldA) [Mass fraction] 100 % Verenice Moreira Other [employer] Other 06-24-2021 18:20-0400 Systolic blood pressure 114 mm[Hg] Verenice Moreira Other [employer] Other Encounters Encounter Date Encounter Type Care Provider Facility Start: 06-23-2024 End: 06-23-2024 [facility] Start: 06-23-2024 End: 06-23-2024 Geeta Plaza MD Work Phone: [facility] MARCIA ALVAREZ Start: 06-23-2024 End: 06-23-2024 ambulatory ARLENE PLAZA Not Available Start: 06-23-2024 End: 06-23-2024 Office outpatient new 45 minutes Arlene Plaza MD Work Phone: [facility] Comment on above: Hypertrophy of tonsi ls alone (Primary Dx); LPRD (laryngopharyngeal reflux disease) Start: 06-19-2024 End: 06-19-2024 ambulatory Kerline Garcia [facility] Work Phone: Start: 06-19-2024 End: 06-19-2024 Departed Referred ENGINE ROOM HELPER Kerline Garcia Work Phone: [facility] [place] Work Phone: Start: 06-17-2024 End: 06-17-2024 ambulatory [facility] Work Phone: Start: 06-17-2024 End: 06-17-2024 Patient encounter procedure [facility] Work Phone: Start: 01-03-2023 End: 01-04-2023 ambulatory [facility] Rubio [facility] Start: 01-03-2023 End: 01-03-2023 Subsequent hospital visit by physician [facility]urea [facility] MD [facility] Comment on above: Possible exposure to STD Start: 12-26-2022 End: 12-27-[address] DOCTOR SELLERS Facility:[facility] Start: 11-06-2022 End: 11-07-2022 ambulatory VERENICE ZUNIGAMER Facility:[facility] Start: 08-09-2022 End: 08-09-2022 ambulatory VERENICEJERSEY ZUNIGAMER Facility:[facility] Start: 06-24-2021 Office outpatient vi sit 15 minutes Verenice Moreira [facility] Plan of Treatment Date Care Activity Detail Author Start: 12-29-2024 DTaP/Tdap/Td vaccine (6 - Td or Tdap) DTaP/Tdap/Td vaccine (6 - Td or Tdap) [facility] Start: 06-19-2024 [facility] Start: 05-11-2024 Influenza vaccination Influenza Vacc ine (#1) [facility] Start: 04-10-2023 Influenza vaccination Flu vacc ine (Season Ended) [facility] Start: 08-06-2021 COVID-19 Vaccine (3 - Booster for Pfizer series) COVID-19 Vaccine (3 - Booster for Pfizer series) [facility] Start: 2021 Hepatitis C screening Hepatitis C sc reen [facility] Start: 2019 Screening for Chlamy tierra trachomatis Chlamydia/GC screen [facility] Start: 2018 HIV screening HIV screen [facility] Start: 2015 Depression Screen Depression Screen [facility] End: 01-03-2023 C.trachomatis N.gonorrhoeae DNA [facility] Work Phone: Comment on above: 1 Occurrences starti ng 01/03/2023 until 01/03/2023 Chlamydia trachomati s DNA [Presence] in Unspecified specimen by KIMMY with probe detection [facility] Neisseria gonorrhoea e DNA [Presence] in Unspecified specimen by KIMMY with probe detection [facility] Trichomonas vaginali s DNA [Presence] in Unspecified specimen by KIMMY with probe detection [facility] Immunizations Immunization Date Immunization Notes Care Provider Fa [facility] 08-10-2020 influenza, injectabl e, quadrivalent, preservative free Arlene Plaza MD Work Phone: [facility] 08-10-2020 influenza virus vacc ine, unspecified formulation Arlene Plaza MD Work Phone: [facility] 08-26-2019 meningococcal B vacc ine, recombinant, OMV, adjuvanted Arlene Plaza MD Work Phone: [facility] 07-29-2019 influenza, injectabl e, quadrivalent, preservative free Arlene Plaza MD Work Phone: [facility] 07-29-2019 meningococcal B vacc ine, recombinant, OMV, adjuvanted Arlene Plaza MD Work Phone: [facility] 07-29-2019 meningococcal polysaccharide (groups A, C, Y and W-135) diphtheria toxoid conjugate vaccine (MCV4P) Arlene Plaza MD Work Phone: [facility] 07-30-2018 influenza, injectabl e, quadrivalent, preservative free Arlene Plaza MD Work Phone: [facility] 06-29-2015 human papilloma viru s vaccine, quadrivalent Arlene Plaza MD Work Phone: [facility] 06-29-2015 influenza, seasonal, injectable, preservative free Arlene Plaza MD Work Phone: [facility] 02-23-2015 human papilloma viru s vaccine, quadrivalent Arlene Plaza MD Work Phone: [facility] 12-29-2014 human papilloma viru s vaccine, quadrivalent Arlene Plaza MD Work Phone: [facility] 12-29-2014 meningococcal ACWY vaccine, unspecified formulation Arlene Plaza MD Work Phone: [facility] 12-29-2014 tetanus toxoid, redu linda diphtheria toxoid, and acellular pertussis vaccine, adsorbed Arlene Plaza MD Work Phone: [facility] 10-27-2008 hepatitis A vaccine, unspecified formulation Arlene Plaza MD Work Phone: [facility] 04-16-2008 hepatitis A vaccine, unspecified formulation Arlene Plaza MD Work Phone: [facility] 04-09-2008 DTaP-hepatitis B and poliovirus vaccine Arlene Plaza MD Work Phone: [facility] 04-09-2008 measles, mumps and r ubella virus vaccine Arlene Plaza MD Work Phone: [facility] 04-09-2008 varicella virus vaccine Bisi Plaza MD Work Phone: [facility] 03-28-2007 diphtheria, tetanus toxoids and acellular pertussis vaccine Arlene Plaza MD Work Phone: [facility] 03-28-2007 poliovirus vaccine, inactivated Arlene Plaza MD Work Phone: [facility] 02-07-2007 DTaP-hepatitis B and poliovirus vaccine Arlene Plaza MD Work Phone: [facility] 02-07-2007 measles, mumps and r ubella virus vaccine Arlene Plaza MD Work Phone: [facility] 02-07-2007 varicella virus vaccine Bisi Plaza MD Work Phone: [facility] 2003 diphtheria, tetanus toxoids and acellular pertussis vaccine, unspecified formulation Arlene Plaza MD Work Phone: [facility] 2003 haemophilus influenz ae type b vaccine, conjugate unspecified formulation Arlene Plaza MD Work Phone: [facility] 2003 hepatitis B vaccine, pediatric or pediatric/adolescent dosage Arlene Plaza MD Work Phone: [facility] 2003 poliovirus vaccine, unspecified formulation Arlene Plaza MD Work Phone: [facility] Payers Date Payer Category Payer Self-pay [id number] 2022 Medicaid [facility] [id number] 2022 Medicaid [id number] 2003 Unknown [id number] 2003 Unknown [id number] 2003 Unknown [id number] 2003 Unknown [id number] 2003 Unknown [id number] 1959 Unknown [id number] Unknown [id number] Unknown [id number] Social History Date Type Detail Facility Unknown if ever smoked [employer] Other Start: 06-23-2024 Sex Assigned At [employer] Other Start: 01-03-2023 Tobacco smoking status [facility]: Start: 01-03-2023 Tobacco use and exposure Smokeless tobacco non-user [facility] Work Phone: Start: 01-03-2023 Alcohol intake Ex-drinker (finding) KRISTEL [employer] Work Phone: Start: 2003 Sex Assigned At Not on file [facility] Work Phone: Start: 2003 Sex Assigned At Female [facility] Tobacco smoking stat [facility] Tobacco smoking consumption unknown [facility] Start: 06-23-2024 History of Social function [facility] How often to you hav e a drink containing alcohol? Monthly or less [facility] How many standard drinks containing alcohol do you have on a typical day? 1 or 2 [facility] How often do you hav e 6 or more drinks on 1 occasion? Less than monthly [facility] History of Present illness Narrative 06-23-2024 Arlene Plaza MD - 06/23/2024 11:30 AM EDT Note Date & Type Note Facility 06-23-2024 History of Presen t illness Narrative Subjective Patient ID: Marycarmen Patel is a 19 y.o. female who presents for Enlarged Tonsils Pt reports 4 mo ago she developed tonsil hyp and exudative tonsillitis. Tx with amox and sx resolved. Pt states at times she feels she has SERINA. Also has cervical LAD and facial swelling. Pt has a globus sensation. Throat cx consistently negative. Periods tend to be heavy. Pt states I have really bad reflux . Review of Systems All other systems reviewed and are negative. Family History Problem Relation Name Age of Onset No Known Problems Mother Active Ambulatory Problems Diagnosis Date Noted No Active Ambulatory Problems Resolved Ambulatory Problems Diagnosis Date Noted No Resolved Ambulatory Problems Past Medical History: Diagnosis Date Enlarged tonsils Past Surgical History: Procedure Laterality Date WISDOM TOOTH EXTRACTION No Known Allergies No current outpatient medications on file prior to visit. No current facility-administered medications on file prior to visit. Objective Last Recorded Vitals Vitals: 06/23/24 1147 BP: 110/80 ENT Physical Exam Constitutional Appearance: patient appears well-developed, well-nourished and well-groomed, Head and Face Appearance: head appears normal and face appears atraumatic; Ear Ear Canals: right ear canal normal; left ear canal normal; Tympanic Membranes: right tympanic membrane normal; left tympanic membrane normal; Nose External Nose: nares patent bilaterally; external nose normal; Internal Nose: septum normal; Oral Cavity/Oropharynx Tongue: normal; Oral mucosa: normal; Hard palate: normal; Soft palate: normal; Tonsils: normal; OC/OP comments: IDL - mass Neck Neck: neck normal; neck palpation normal; Thyroid: thyroid normal; Respiratory Inspection: breathing unlabored; normal breathing rate; Auscultation: breath sounds are clear; Cardiovascular Inspection: extremities are warm and well perfused; no peripheral edema present; Auscultation: regular rate and rhythm; Assessment/Plan Diagnoses and all orders for this visit: Hypertrophy of tonsils alone Pt's pharyngeal exam is normal today. I suspect she has some recurrent viral tonsillitis exacerbated by LPRD. LPRD (laryngopharyngeal reflux disease) Pt has mult sx suggesting she has sig LPRD. I will start an aggressive reflux regimen. Consider GI eval if sx persist once off meds in 3 mo documented in this encounter [facility] Evaluation note 06-24-2021 Note Date & Type [...] material was printed, Contusion material was printed [employer] Other Evaluation note Note Date & Type Note Facility Evaluation note Diagnosis Possible exposure to STD Other specified personal history presenting hazards to health documented in this encounter [facility] Work Phone: Evaluation note Note Date & Type Note Facility Evaluation note No assessment information availa [facility] Work Phone: Evaluation note Note Date & Type Note Facility Evaluation note Diagnosis Hypertrophy of tonsils alone- Primary LPRD (laryngopharyngeal reflux disease) Acute laryngitis, without mention of obstruction documented in this encounter [facility] History general Narrative - Reported Note Date & Type Note Facility History general Narrative - Reported Type Medical History migraine headache disorder Medical History migraine [facility] [employer] Other Summary Purpose Family History No Family History Records FoundNo Family History Records FoundNo Family History Records FoundNo Family History Records FoundNo Family History Records Found Advance Directives No Advanced Directives Records Found Advance Directive Response Recorded Date/ Time Advance Directives No July 01, 2021 10:41am Chief Complaint and Reason for Visit Chief Complaint STD testing Chief Complaint STD testing High risk sexual behavior Additional Source Comments INFORMATION SOURCE (unrecogn ized section and content) DATE CREATED AUTHOR 03/23/2021 [facility] Center DATE CREATED AUTHOR AUTHOR'S ORGANIZ ATION 12/31/2022 [facility] DATE CREATED AUTHOR AUTHOR'S ORGANIZ ATION 01/04/2023 [facility] DATE CREATED AUTHOR AUTHOR'S ORGANIZ ATION 06/25/2024 [facility] EPIC DATE CREATED AUTHOR AUTHOR'S ORGANIZ ATION 06/25/2024 [facility] REASON FOR VISIT (unrecogniz ed section and content) Reason Comments Enlarged Tonsils Care Teams (unrecognized sec tion and content) Makeup Artist Relationship Specialty Start Date End Date Aurea Palumbo MD [address] [place] [address] PCP - General Family Medicine 01/03/23 Team Status: Active Member Role Status Dates HUAN Castorena Primary Care Provider Active Team Status: Inactive Member Role Status Dates Kerline Garcia APRN Attending Provider Active Start: June 17, 2024 End: June 17, 2024 HUAN Castorena Primary Care Provider Active Start: June 17, 2024 End: June 17, 2024 Team Status: Inactive Member Role Status Dates Kerline L Garcia , ENGINE ROOM HELPER Attending Provider Active Start: June 19, 2024 End: June 19, 2024 Makeup Artist Relationship Specialty Start Date End Date Verenice Btuler MD [address] [place], [place] [id number] Referring Physician Family Medicine 06/09/24 Makeup Artist Relationship Specialty Start Date End Date Verenice Butler MD [address] [place] [id number] Referring Physician Family Medicine 06/09/24 Goals (unrecognized section and content) Goals may be documented in a n alternate section FOR RECORDS PERTAINING TO PATIENTS WHO ARE [...] BE BASED ON THE PRIMARY CLINICAL RECORDS. [facility] [employer] [facility]. provides no warranty or guarantee of the accuracy or completeness of information in this document.
[2024-10-01 11:09] LABS: Internal Control Within Normal Limits; Strep A Antigen Screen Negative
== END 2024-10-01 10:46 | disposition home or self-care (01) ==
LOC: LAB 10:47
PROVIDERS: PCP Nurse Practitioner Family; Visit Provider Nurse Practitioner Family
DX: J02.9 Acute pharyngitis, unspecified (principal)
CPT/HCPCS: 87070; 87880

== ENCOUNTER 2025-01-01 01:57 | Emergency (ER) | payer MEDICAID, SELFPAY ==
[2025-01-01 02:02] VITALS: BP 121/89; PULSE 89; TEMP 36.6; O2SAT 100; BMI 25.0
--- NOTE | 2025-01-01 02:12 | ED.ABDPAIN1 ---
HPI - Abdominal Pain General Chief Complaint: Abdominal Pain Stated Complaint: KIDNEY PAIN FOR 3 DAYS Time Seen by Provider: 01/01/25 02:08 Source: patient Mode of arrival: walk-in Limitations: no limitations History of Present Illness HPI narrative: presents complaining of kidney pain for 3 days. Started on the right side and now moving to the left also. No dysuria. Did have URI symptoms and fever but these have improved. no history of kidney stones Related Data Allergies Allergy/AdvReac Type Severity Reaction Status Date / Time No Known Drug Allergies Allergy Verified 01/01/25 02:05 Review of Systems ROS Status of ROS 10 or more systems reviewed and unremarkable except as noted in history and below PFSH PENDING SALE TO [facility] Social History Smoking status: Never smoker Little interest or pleasure in doing things: not at all Feeling down, depressed, or hopeless: not at all Exam Constitutional Vital Signs, click to edit/add: Last Vital Signs Temp 97.8 F 01/01/25 02:02 Pulse 89 01/01/25 02:02 Resp 18 01/01/25 02:02 BP 121/89 01/01/25 02:02 Pulse Ox 100 01/01/25 02:02 O2 Del Method Room Air 01/01/25 02:02 Common normals: no apparent distress, average body habitus, oriented x3, no limitations, healthy appearing, alert and well nourished [facility] Common normals: normocephalic and head/scalp atraumatic Respiratory Common normals: normal respiratory effort, no retractions, no use of accessory muscles and clear to auscultation bilaterally Cardio Common normals: regular rate, regular rhythm, S1 normal heart sound and S2 normal heart sound GI Common normals: Normal to inspection, nondistended, normoactive bowel sounds present, soft to palpation and non-tender Back & Pelvis General back: CVA tenderness CVA tenderness: right Extremity Common normals: normal to inspection Neuro Common normals: oriented x3, CN's II-XII intact bilaterally, moves all extremities and no focal motor deficits Psych Appearance: grossly normal Course Vital Signs Vital signs: Vital Signs Temperature 97.8 F 01/01/25 02:02 Pulse Rate 89 01/01/25 02:02 Respiratory Rate 18 01/01/25 02:02 Blood Pressure 121/89 04/24/25 02:02 Pulse Oximetry 100 01/01/25 02:02 Oxygen Delivery Method Room Air 01/01/25 02:02 Temperature 97.8 F 01/01/25 02:02 Pulse Rate 89 01/01/25 02:02 Respiratory Rate 18 01/01/25 02:02 Blood Pressure 121/89 01/01/25 02:02 Pulse Oximetry 100 01/01/25 02:02 Oxygen Delivery Method Room Air 01/01/25 02:02 MDM - Abdominal Pain MDM Narrative Medical decision making narrative: presents complaining of bilat flank pain. She described as kidney pain. UA neg. labs unremarkable. CT with findings of constipation. patient asymptomatic while in the department Lab Data Labs: Lab Results 01/01/25 01/01/25 Range/Units 02:20 02:30 WBC 5.3 (4.0-11.0) 10^3/uL RBC 4.35 (4.20-5.40) 10^6/uL Hgb 13.9 (12.0-16.0) g/dL Hct 41.2 (36.0-48.0) % MCV 94.7 (81.0-99.0) fL MCH 32.0 (26.7-34.0) pg MCHC 33.7 (29.9-35.2) g/dL RDW 12.7 (11.0-15.0) % Plt Count 168 (150-450) 10^3/uL MPV 10.2 (9.5-13.5) fL Neut % (Auto) 65.1 (43.0-75.0) % Lymph % (Auto) 21.5 (20.5-60.0) % [place] % (Auto) 10.3 (1.7-12.0) % Eos % (Auto) 2.3 (0.9-7.0) % Baso % (Auto) 0.6 (0.2-2.0) % Neut # (Auto) 3.4 (1.4-6.5) 10^3/uL Lymph # (Auto) 1.1 L (1.2-3.8) 10^3/uL [place] # (Auto) 0.5 (0.3-0.8) 10^3/uL Eos # (Auto) 0.1 (0.0-0.7) 10^3/uL Baso # (Auto) 0.0 (0.0-0.1) 10^3/uL Abs Immat Gran (auto) 0.01 (0.00-0.03) 10^3/uL Imm/Tot Granulo (auto) 0.2 (0.0-0.5) % Sodium 138 (136-145) mmol/L Potassium 3.7 (3.5-5.1) mmol/L Chloride 103 (98-107) mmol/L Carbon Dioxide 26.9 (21.0-32.0) mmol/L Anion Gap 11.8 BUN 8.0 (7.0-18.0) mg/dL Creatinine 0.94 (0.55-1.02) mg/dL Est GFR ( Amer) >60 (>=60 mL/min/1.73m^2) Est GFR (Non-Af Amer) >60 (>=60 mL/min/1.73m^2) BUN/Creatinine Ratio 8.5 Glucose 107 H (74-106) mg/dL Calcium 8.8 (8.5-10.1) mg/dL Urine Color Lt. yellow (YELLOW) Urine Clarity Clear (CLEAR) Urine pH 7.5 (5.0-9.0) Ur Specific [place] 1.010 (1.005-1.025) Urine Protein Negative (NEG/TRACE) mg/dL Urine Glucose (UA) Negative (NEGATIVE) mg/dL Urine Ketones Negative (NEGATIVE) mg/dL Urine Occult Blood Negative (NEGATIVE) Urine Nitrite Negative (NEGATIVE) Urine Bilirubin Negative (NEGATIVE) Urine Urobilinogen 0.2 (0.2-1.0) EU/dL Ur Leukocyte Esterase Negative (NEGATIVE) Urine RBC None seen (0-2) #/HPF Urine WBC 0-2 A (NONE SEEN) #/HPF Ur Squamous Epith Cells Rare (NONE/RARE) #/LPF Urine Crystals None seen (None Seen) #/HPF Urine Bacteria None seen (NONE SEEN) #/HPF Urine Casts None seen (NONE SEEN) #/LPF Urine Mucus None seen (NONE SEEN) Ur Culture Indicated? No Urine HCG, Qual Negative (NEGATIVE) Discharge Plan Discharge Chief Complaint: Abdominal Pain Clinical Impression: Acute flank pain Patient Disposition: Home, Self-Care Print Language: Lao Instructions: Flank Pain (ED) Referrals: FRANKLIN BUTLER [Primary Care Provider] - 1 week
[2025-01-01 02:42] LABS: Basophils Percent Auto 0.6 % (0.2-2.0); Eosinophils Absolute Auto 0.1 10^3/uL (0.0-0.7); Eosinophils Percent Auto 2.3 % (0.9-7.0); Hematocrit 41.2 % (36.0-48.0); Hemoglobin 13.9 g/dL (12.0-16.0); Immature Granulocytes Abs Auto 0.01 10^3/uL (0.00-0.03); Immature Granulocytes Pct Auto 0.2 % (0.0-0.5); Lymphocytes Absolute Auto 1.1 10^3/uL (1.2-3.8); Lymphocytes Percent Auto 21.5 % (20.5-60.0); Mean Corpuscular HGB Conc 33.7 g/dL (29.9-35.2); Mean Corpuscular Volume 94.7 fL (81.0-99.0); Mean Platelet Volume 10.2 fL (9.5-13.5); Monocytes Absolute Auto 0.5 10^3/uL (0.3-0.8); Monocytes Percent Auto 10.3 % (1.7-12.0); Neutrophils Absolute Auto 3.4 10^3/uL (1.4-6.5); Neutrophils Percent Auto 65.1 % (43.0-75.0); Platelet Count 168 10^3/uL (150-450); Red Blood Count 4.35 10^6/uL (4.20-5.40); Red Cell Distribution Width 12.7 % (11.0-15.0); White Blood Count 5.3 10^3/uL (4.0-11.0)
[2025-01-01 02:43] LABS: Bilirubin Urine NEGATIVE (NEGATIVE); Blood Urine NEGATIVE (NEGATIVE); Clarity Urine CLEAR (CLEAR); Color Urine LT. YELLOW (YELLOW); Glucose Urine UA NEGATIVE (NEGATIVE); Ketones Urine NEGATIVE (NEGATIVE); Leukocyte Esterase Urine NEGATIVE (NEGATIVE); Nitrite Urine NEGATIVE (NEGATIVE); Protein Urine NEGATIVE (NEG/TRACE); Urobilinogen Urine 0.2 EU/dL (0.2-1.0); pH Urine 7.5 (5.0-9.0)
[2025-01-01 02:49] LABS: Bacteria Urine NONE SEEN #/HPF (NONE SEEN); Cast Seen? NONE SEEN #/LPF (NONE SEEN); Crystals Seen? None Seen #/HPF (None Seen); Mucus Urine NONE SEEN (NONE SEEN); RBC Urine NONE SEEN #/HPF (0-2); Squamous Epithelial Cell Urine RARE #/LPF (NONE/RARE); Urine Culture Indicated NO; WBC Urine 0-2 #/HPF (NONE SEEN)
[2025-01-01 02:51] LABS: Anion Gap 11.8; BUN Creatinine Ratio 8.5; Calcium 8.8 mg/dL (8.5-10.1); Carbon Dioxide 26.9 mmol/L (21.0-32.0); Chloride 103 mmol/L (98-107); Estimated GFR (African America >60 (>=60 mL/min/1.73m^2); Estimated GFR (Non-African Ame >60 (>=60 mL/min/1.73m^2); Glucose 107 mg/dL (74-106); Potassium 3.7 mmol/L (3.5-5.1); Sodium 138 mmol/L (136-145)
[2025-01-01 03:04] LABS: HCG Qualitative Urine* NEGATIVE (NEGATIVE); Internal Control Within Normal Limits
== END 2025-01-01 05:36 | disposition home or self-care (01) ==
PROVIDERS: Emergency Provider Internal Medicine; PCP Nurse Practitioner Family
DX: R10.9 Unspecified abdominal pain (principal); K59.00 Constipation, unspecified
CPT/HCPCS: 36415; 74176; 80048; 81001; 84703; 85025; 99284

== ENCOUNTER 2025-01-05 13:08 | Outpatient (OUT) | payer MEDICAID, SELFPAY ==
[2025-01-05 13:39] LABS: Basophils Percent Auto 0.3 % (0.2-2.0); Eosinophils Absolute Auto 0.1 10^3/uL (0.0-0.7); Eosinophils Percent Auto 0.9 % (0.9-7.0); Immature Granulocytes Abs Auto 0.01 10^3/uL (0.00-0.03); Immature Granulocytes Pct Auto 0.2 % (0.0-0.5); Lymphocytes Absolute Auto 1.3 10^3/uL (1.2-3.8); Lymphocytes Percent Auto 19.7 % (20.5-60.0); Mean Corpuscular HGB Conc 33.3 g/dL (29.9-35.2); Mean Corpuscular Hemoglobin 31.5 pg (26.7-34.0); Mean Corpuscular Volume 94.6 fL (81.0-99.0); Mean Platelet Volume 10.4 fL (9.5-13.5); Monocytes Absolute Auto 0.4 10^3/uL (0.3-0.8); Monocytes Percent Auto 6.4 % (1.7-12.0); Neutrophils Absolute Auto 4.7 10^3/uL (1.4-6.5); Neutrophils Percent Auto 72.5 % (43.0-75.0); Platelet Count 223 10^3/uL (150-450); Red Blood Count 4.44 10^6/uL (4.20-5.40); Red Cell Distribution Width 12.3 % (11.0-15.0); White Blood Count 6.4 10^3/uL (4.0-11.0)
[2025-01-05 13:42] LABS: HCG Qualitative Urine* NEGATIVE (NEGATIVE); Internal Control Within Normal Limits
[2025-01-05 14:07] LABS: Alanine Aminotransferase 13 U/L (14-59); Aspartate Amino Transferase 13 U/L (15-37); Triglycerides 36 mg/dL (<=150)
== END 2025-01-05 13:09 | disposition home or self-care (01) ==
LOC: LAB 13:09
PROVIDERS: PCP Nurse Practitioner Family; Visit Provider Nurse Practitioner
DX: L70.0 Acne vulgaris (principal); Z79.899 Other long term (current) drug therapy
CPT/HCPCS: 36415; 84450; 84460; 84478; 84703; 85025

== ENCOUNTER 2025-04-21 12:35 | Outpatient (OUT) | payer MEDICAID, SELFPAY ==
[2025-04-21 12:47] LABS: Hematocrit 38.7 % (36.0-48.0); Hemoglobin 12.9 g/dL (12.0-16.0); Immature Granulocytes Abs Auto 0.00 10^3/uL (0.00-0.03); Immature Granulocytes Pct Auto 0.0 % (0.0-0.5); Lymphocytes Absolute Auto 1.3 10^3/uL (1.2-3.8); Mean Corpuscular HGB Conc 33.3 g/dL (29.9-35.2); Mean Corpuscular Hemoglobin 31.3 pg (26.7-34.0); Mean Corpuscular Volume 93.9 fL (81.0-99.0); Platelet Count 172 10^3/uL (150-450); Red Blood Count 4.12 10^6/uL (4.20-5.40); White Blood Count 3.6 10^3/uL (4.0-11.0)
[2025-04-21 13:58] LABS: Alanine Aminotransferase 21 U/L (14-59); Aspartate Amino Transferase 16 U/L (15-37); Triglycerides 32 mg/dL (<=150)
== END 2025-04-21 12:36 | disposition home or self-care (01) ==
LOC: LAB 12:35
PROVIDERS: PCP Nurse Practitioner Family; Visit Provider Dermatology
DX: Z79.899 Other long term (current) drug therapy (principal)
CPT/HCPCS: 36415; 84450; 84460; 84478; 85025